=== PATIENT | female | born 1945 | race Caucasian/White ===

== ENCOUNTER 2018-09-19 01:48 | Inpatient (IN) | payer MEDICARE, OTHER ==
--- NOTE | 2018-09-19 02:50 | PDOC ---
History of Present Illness - General Chief Complaint: Pain, Acute Stated Complaint: ABD PAIN - History of Present Illness Initial Comments: Margot Dye is a 73yo woman with a PMH of HTN who presents with epigastric pain and NBNB vomiting that started around 9pm tonight. She reports that she felt well prior to that time, and she was able to eat normally today without any discomfort. The pain started suddenly this evening around 9pm, after dinner , along with NBNB vomiting. She describes the pain as sharp, located in the epigastrium, and non-radiating. Ms Dye had similar pain once in the past about a month ago, but it was less severe and self-resolved. She did not seek medical care at that time. Ms Dye states that she has been feeling well otherwise. She has been having normal bowel movement, including earlier today. She denies any history of GERD, recent abdominal pain, constipation, diarrhea, fever/chills, respiratory symptoms, change in diet, recent travel, or sick contacts. Her son ate dinner with her, and he currently has no symptoms. Past History - Past Medical History Allergies/Adverse Reactions: Allergies Allergy/AdvReac Type Severity Reaction Status Date / Time No Known Allergies Allergy Verified 09/19/18 02:00 Home Medications: Ambulatory Orders Lisinopril 10 mg PO DAILY 09/19/18 - Suicide/Smoking/Psychosocial Hx Smoking History: Never smoked Have you smoked in the past 12 months: No Information on smoking cessation initiated: No Hx Alcohol Use: No Drug/Substance Use Hx: No Review of Systems - Review of Systems Comments:: General: No fevers, no chills, no weight or appetite change, no malaise HEENT: No changes in vision, no changes in hearing, no congestion, no sore throat CV: No chest pain, no palpitations, no LE edema Pulm: No SOB, no cough, no wheezing GI: See HPI, no change in bowel habits, no melena : No frequency, no urgency, no dysuria Musc: No back pain, no joint swelling, no recent injury Skin: No rash, no lesions, no erythema Endo: No excessive thirst, no heat/cold intolerance Heme: No unusual bruising or bleeding, no swollen glands Neuro: No syncope, no numbness/tingling, no focal weakness Vasc: No claudication Psych: No recent change in mood, no SI or HI *Physical Exam - Vital Signs Last Vital Signs Temp Pulse Resp BP Pulse Ox 98.6 F 74 18 152/84 98 09/19/18 01:55 09/19/18 01:55 09/19/18 01:55 09/19/18 01:55 09/19/18 01:55 - Physical Exam Comments: General: Uncomfortable but in no acute distress HEENT: PERRL, EOMI, MMM, voice normal, normal neck ROM, no LAD Cards: RRR, no murmur appreciated Pulm: Comfortable on room air, clear to auscultation bilaterally Abd: Soft, nondistended. Epigastric TTP. No rigidity or involuntary guarding. : No CVA tenderness Ext: Atraumatic. No LE edema. ROM intact. Strength 5/5 and equal bilaterally Vasc: Extremities WWP. Palpable radial and pedal pulses bilaterally Skin: Normal color, no rashes or lesions Neuro: A&Ox3, CN grossly intact, normal speech, motor/sensory grossly intact and symmetric Psych: Mood appropriate to situation Moderate Sedation - Procedure Monitoring Vital Signs: Procedure Monitoring Vital Signs Temperature 98.6 F 09/19/18 01:55 Pulse Rate 74 09/19/18 01:55 Respiratory Rate 18 09/19/18 01:55 Blood Pressure 152/84 09/19/18 01:55 O2 Sat by Pulse Oximetry (%) 98 09/19/18 01:55 ED Treatment Course - LABORATORY CBC & Chemistry Diagram: 09/19/18 02:59 09/19/18 02:59 Medical Decision Making - Medical Decision Making 09/19/18 02:50 Margot Dye is a 73yo woman with a PMH of HTN who presents with acute onset of non-radiating epigastric pain and multiple episodes of NBNB vomiting starting at 9pm last night. She denies any associated symptoms including chest pain, SOB, diaphoresis, or lightheadedness. - DDx includes gastritis, cholecystitis, pancreatitis, or ACS. Do not suspect bowel obstruction as pt is having normal BM, most recently earlier today. - CBC, CMP, mag, phos, lipase, trop, EKG, CXR - Famotidine, maalox, reglan, IVF for symptoms 09/19/18 05:08 - Labs reviewed. Leukocytosis to 23, lipase 80059, amylase 1300, AST 263, ALT 186, alk phos 132. Elevated BUN/Cr, likely Colleen - Will admit to hospitalist service for pancreatitis - Additional 1L fluids ordered - Abd US ordered 09/19/18 06:18 - LR@125 ordered for continued hydration; requested by medicine team - IV acetaminophen for returning pain - Signed pt out to Dr Saldaña, who has since evaluated Ms Dye. She will be admitted to the medicine service for continued management. Discussed with Dr Heath. Rosanna Barbosa PGY1 *DC/Admit/Observation/Transfer Diagnosis at time of Disposition: Pancreatitis, COLLEEN (acute kidney injury) - Discharge Dispostion Decision to Admit order: Yes - Referrals - Patient Instructions - Post Discharge Activity
[2018-09-19] MEDS ORDERED: SODIUM CHLORIDE 0.9% 500 ML INFUS.BAG IV ONE ×2 (02:53→05:04)
[2018-09-19] MEDS ORDERED: FAMOTIDINE 20 MG/50 ML IVPB 20 MG/50 ML MG IVPB ONE ×2 (02:53→03:05)
[2018-09-19] MEDS ORDERED: METOCLOPRAMIDE HCL INJECTION 10 MG/2 ML VIAL IVPUSH ONE (02:53)
[2018-09-19] MEDS ORDERED: MAG HYDROX/AL HYDROX/SIMETH 30 ML UNIT-DOSE CUP PO ONE (02:53)
[2018-09-19] MEDS ORDERED: MAG HYDROX/AL HYDROX/SIMETH 30 ML UNIT-DOSE CUP ONE (03:05)
[2018-09-19] MEDS ORDERED: METOCLOPRAMIDE HCL INJECTION 10 MG/2 ML VIAL ONE (03:05)
[2018-09-19 03:09] LABS: BASO % 0.2 % (0-2.0); EOS % 0.2 % (0-4.5); HEMATOCRIT 46.9 % (32.4-45.2); HEMOGLOBIN 15.9 GM/dL (10.7-15.3); LYMPH % 6.8 % (8-40); MCH 30.8 pg (25.7-33.7); MCHC 33.9 g/dl (32.0-36.0); MEAN CELL VOLUME 90.7 fl (80-96); MEAN PLT VOLUME 8.7 fl (7.5-11.1); NEUT % 87.8 % (42.8-82.8); PLATELET COUNT 339 K/MM3 (134-434); RBC 5.17 M/mm3 (3.60-5.2); RDW 14.4 % (11.6-15.6); WHITE BLOOD COUNT 22.9 K/mm3 (4.0-10.0)
--- NOTE | 2018-09-19 03:16 | PDOC ---
Attending Attestation - Resident Resident Name: Rosanna Barbosa - ED Attending Attestation I have performed the following: I have examined & evaluated the patient, The case was reviewed & discussed with the resident, I agree w/resident's findings & plan, Exceptions are as noted - HPI HPI: 09/19/18 05:05 73F pmh HTN here with epigastric abd px a/w nbnb n/v starting this evening. Pt is passing gas and had a recent bm - Physicial Exam PE: 09/19/18 05:06 agree with exam as documented by resident - Medical Decision Making 09/19/18 05:06 acute gastritis?, megha, pancreatitis f/u labs re-eval after rx Pt states that px is much improved after GI cocktail Labs consistent with pancreatitis, analgesia, ivf hydration admit
[2018-09-19 04:58] LABS: ALBUMIN 4.4 g/dl (3.4-5.0); ALK PHOS 132 U/L (45-117); AMYLASE > 1300 U/L (25-115); ANION GAP 8 MMOL/L (8-16); BILIRUBIN,TOTAL 0.4 mg/dL (0.2-1); BLOOD UREA NITROGEN 26 mg/dL (7-18); CHLORIDE 103 mmol/L (98-107); CO2 30 mmol/L (21-32); CREATININE 1.4 mg/dL (0.55-1.3); GLUCOSE,RANDOM 191 mg/dL (74-106); LIPASE > 30000 U/L (73-393); MAGNESIUM 2.4 mg/dL (1.8-2.4); POTASSIUM 3.5 mmol/L (3.5-5.1); SGOT/AST 263 U/L (15-37); SGPT/ALT 186 U/L (13-61); SODIUM 142 mmol/L (136-145); TOT PROT 8.6 g/dl (6.4-8.2)
[2018-09-19] MEDS ORDERED: ACETAMINOPHEN 1000 MG/100 ML VIAL (NON FORMULARY) IVPB ONE (05:28)
[2018-09-19] MEDS ORDERED: LACTATED RINGERS SOLUTION 1,000 ML/1,000 ML INFUS.BAG IV SCH (05:30)
--- NOTE | 2018-09-19 05:43 | PN ---
Teaching Attending Note Name of Resident: Jamel Saldaña ATTENDING PHYSICIAN STATEMENT I saw and evaluated the patient. I reviewed the resident's note and discussed the case with the resident. I agree with the resident's findings and plan as documented. SUBJECTIVE: Patient is a 73 year old woman with a PMH of HTN who presents with epigastric pain and vomiting that started around 9pm tonight. She reports that she felt well prior to that time, and she was able to eat normally today without any discomfort. The pain started suddenly this evening around 9pm, after dinner, along with vomiting. She describes the pain as sharp, located in the epigastrium , and non-radiating. She had similar pain about a month ago, but it was less severe and self-resolved. She did not seek medical care at that time. She denies any history of GERD, recent abdominal pain, constipation, diarrhea, fever /chills, respiratory symptoms, change in diet, recent travel, or sick contacts. OBJECTIVE: Alert Vital Signs Period Temp Pulse Resp BP Sys/Contreras Pulse Ox Last 24 Hr 98.6 F 74 18 152/84 98 HEENT: No Jaundice, eye redness or discharge, PERRLA, EOMI. Normocephalic, atraumatic. External ears are normal and hearing is grossly intact. No nasal discharge. Neck: Supple, nontender. No palpable adenopathy or thyromegaly. No JVD Chest: Good effort. Clear to auscultation and percussion. Heart: Regular. No S3, rub or murmur Abdomen: Not distended, soft, tender epigastrium and no HSM. No rebound or guarding. Normoactive bowel sounds. Ext: Peripheral pulses intact. No leg edema. Skin: Warm and dry. No petechiae, rash or ecchymosis. Neuro: Alert. Oriented x3. CN 2-12 grossly intact. Sensation grossly intact in all four extremities and DTR are symmetric. Current Medications Generic Name Dose Route Start Last Admin Trade Name Freq PRN Reason Stop Dose Admin Lactated Ringer's 1,000 ml in 1,000 mls @ 125 mls/hr 09/19/18 05:30 Lactated Ringers Solution IV ASDIR [facility] Home Medications Medication Instructions Recorded Unobtainable 09/19/18 Abnormal Lab Results 09/19/18 09/19/18 02:59 02:59 WBC 22.9 H Hgb 15.9 H Hct 46.9 H Absolute Neuts (auto) 20.1 H Neutrophils % 87.8 H Lymphocytes % 6.8 L BUN 26 H Creatinine 1.4 H Random Glucose 191 H AST 263 H ALT 186 H Alkaline Phosphatase 132 H Total Protein 8.6 H Total Amylase > 1300 H Lipase > 84437 H ASSESSMENT AND PLAN: 1. Severe Pancreatitis - Etiology unclear, but gallstone pancreatitis will be excluded. Will get CT abdomen to assess for gallstones/pancreatic abscess. Continue IV ringers lactate at 125 ml/hour, pain control and feed as soon as she can tolerate oral feeds. Get fasting lipid profile, trend LFTs and monitor electrolytes (Ca,Mg,K,P). Check HbA1c once stable. 2. MODESTA - Likely induced by pancreatitis via various mechanisms such as hypovolemia, hypoxia, impairment of renal microcirculation, decrease in renal perfusion pressure, etc. Will continue aggressive hydration with Ringers lactate. Avoid nephrotoxic agents such as NSAIDS, aminoglycosides, contrast dyes and certain Alternative medicine products. 3. Hypertension - Once appropriate, will restart outpatient antihypertensive drugs and revise regimen to ensure smooth [id number] good BP control. Nonpharmacologic measures to control hypertension like weight loss, salt restriction and exercise discussed. 4. DVT prophylaxis - Lovenox 40 mg SQ q 24 hours. 5. Advance directives - Full code
[2018-09-19] MEDS ORDERED: ACETAMINOPHEN INJECTION 100 ML IVPB ONE (05:44)
[2018-09-19] MEDS ORDERED: ONDANSETRON 4 MG/2 ML VIAL IVPB PRN (05:59)
[2018-09-19] MEDS ORDERED: HEPARIN NA (PORCINE) 5,000 UNITS/ML 1ML VIAL ONE (06:21)
[2018-09-19] MEDS: HEPARIN NA (PORCINE) 5,000 UNITS/ML 1ML VIAL SQ SCH ×3 (06:27→21:06)
[2018-09-19 07:01] LABS: ALBUMIN 3.8 g/dl (3.4-5.0); ALK PHOS 112 U/L (45-117); ANION GAP 7 MMOL/L (8-16); BILIRUBIN,TOTAL 0.4 mg/dL (0.2-1); BLOOD UREA NITROGEN 26 mg/dL (7-18); CALCIUM 8.8 mg/dL (8.5-10.1); CHLORIDE 106 mmol/L (98-107); CO2 29 mmol/L (21-32); CREATININE 1.3 mg/dL (0.55-1.3); GLUCOSE,RANDOM 150 mg/dL (74-106); MAGNESIUM 2.1 mg/dL (1.8-2.4); PHOSPHOROUS 2.8 mg/dL (2.5-4.9); POTASSIUM 4.5 mmol/L (3.5-5.1); SGOT/AST 178 U/L (15-37); SGPT/ALT 162 U/L (13-61); SODIUM 142 mmol/L (136-145); TOT PROT 7.6 g/dl (6.4-8.2)
[2018-09-19 07:34] LABS: CHOLESTEROL 205 mg/dL (50-200); HDL CHOLESTEROL 57 mg/dL (40-60); TRIGLYCERIDES 128 mg/dL (0-150)
[2018-09-19 07:52] LABS: HEMATOCRIT 46.5 % (32.4-45.2); HEMOGLOBIN 15.7 GM/dL (10.7-15.3); MCHC 33.9 g/dl (32.0-36.0); MEAN CELL VOLUME 91.5 fl (80-96); PLATELET COUNT 283 K/MM3 (134-434); RBC 5.08 M/mm3 (3.60-5.2); WHITE BLOOD COUNT 20.4 K/mm3 (4.0-10.0)
[2018-09-19] MEDS ORDERED: MORPHINE SULFATE 2 MG/ML VIAL ONE (07:55)
[2018-09-19] MEDS: MORPHINE SULFATE 2 MG/ML VIAL IVPUSH PRN ×2 (08:13→13:17)
[2018-09-19] MEDS ORDERED: ONDANSETRON 4 MG/2 ML VIAL ONE (08:14)
[2018-09-19 08:52] LABS: PROTHROMBIN TIME (PATIENT) 11.8 SEC (9.7-13.0)
[2018-09-19 08:53] LABS: PLATELET ESTIMATE ADEQUATE
[2018-09-19 08:55] LABS: ACTIVATED PTT 26.8 SECONDS (25.2-36.5)
--- NOTE | 2018-09-19 09:02 | HP ---
CHIEF COMPLAINT: abdominal pain PCP: none HISTORY OF PRESENT ILLNESS: The patient is [place] speaking. the history was collected with the assistance of the patient's son at bedside. The patient is a 73-year-old female with a past medical history of hypertension who comes into the emergency department complaining of a one-day history of epigastric pain, nausea and NBNB vomiting. At approximately 9 PM this evening, the patient began to experience sharp epigastric pain with did not radiate. The patient say she has had a similar episode of this pain in the past but that episode was less severe and resolve spontaneously. The patient also endorses lumbar back pain in the midline. The patient denies fevers, chills, dysuria or diarrhea. The patient is currently being treated for HTN, but cannot recall the name of her medication. ER course was notable for: (1) WBC 22.9 (2) Lipase >30,000 Amylase >1300 (3) AST 263, ALT 186 (4) Reglan, 1L NS Recent Travel: none PAST MEDICAL HISTORY: see HPI PAST SURGICAL HISTORY: none Social History: Smoking: denies Alcohol: denies Drugs: denies Family History: non-contributory Allergies No Known Allergies Allergy (Verified 09/19/18 02:00) HOME MEDICATIONS: Home Medications Medication Instructions Recorded Lisinopril 10 mg PO DAILY 09/19/18 REVIEW OF SYSTEMS CONSTITUTIONAL: Absent: fever, chills, diaphoresis, generalized weakness, malaise, weight change HEENT: Absent: rhinorrhea, nasal congestion, throat pain, throat swelling, difficulty swallowing, mouth swelling, ear pain, eye pain, visual changes CARDIOVASCULAR: Absent: chest pain, syncope, palpitations, irregular heart rate, lightheadedness , peripheral edema RESPIRATORY: Absent: cough, shortness of breath, dyspnea with exertion, orthopnea, wheezing, stridor, hemoptysis GASTROINTESTINAL: Absent: diarrhea, constipation, melena, hematochezia GENITOURINARY: Absent: dysuria, frequency, urgency, hesitancy, hematuria, flank pain, genital pain MUSCULOSKELETAL: Absent: myalgia, arthralgia, joint swelling, back pain, neck pain SKIN: Absent: rash, itching, pallor HEMATOLOGIC/IMMUNOLOGIC: Absent: easy bleeding, easy bruising, lymphadenopathy, frequent infections ENDOCRINE: Absent: unexplained weight gain, unexplained weight loss, heat intolerance, cold intolerance NEUROLOGIC: Absent: headache, focal weakness or paresthesias, dizziness, unsteady gait, seizure, mental status changes, bladder or bowel incontinence PSYCHIATRIC: Absent: anxiety, depression, suicidal or homicidal ideation, hallucinations. PHYSICAL EXAMINATION Vital Signs - 24 hr 09/19/18 09/19/18 09/19/18 01:55 05:56 08:05 Temperature 98.6 F 98.5 F 98.6 F Pulse Rate 74 Pulse Rate [ 78 99 H Left Apical] Respiratory 18 19 20 Rate Blood Pressure 152/84 Blood Pressure 142/88 149/89 [Right Arm] O2 Sat by Pulse 98 100 99 Oximetry (%) GENERAL: Awake, alert, and fully oriented, in no acute distress. HEAD: Normal with no signs of trauma. EYES: Pupils equal, round and reactive to light, extraocular movements intact, sclera anicteric, conjunctiva clear. No lid lag. LUNGS: Breath sounds equal, clear to auscultation bilaterally. No wheezes, and no crackles. No accessory muscle use. HEART: Regular rate and rhythm, normal S1 and S2 without murmur, rub or gallop. ABDOMEN: Soft, tenderness to palpation in the RUQ as well as in the epigastrium and lower quadrants. normoactive bowel sounds, no guarding, no rebound, no masses. No hepatomegaly or splenomegaly. No CVA tenderness. Patient describes pain in the midline at the level of L4, but the pain is not reproducible. LOWER EXTREMITIES: 2+ pulses, warm, well-perfused. No calf tenderness. No peripheral edema. NEUROLOGICAL: Cranial nerves II-X intact. Normal speech. SKIN: Warm, dry, normal turgor, no rashes or lesions noted, normal capillary refill. Laboratory Results - last 24 hr 09/19/18 09/19/18 09/19/18 02:59 02:59 06:20 WBC 22.9 H 20.4 H RBC 5.17 5.08 Hgb 15.9 H 15.7 H Hct 46.9 H 46.5 H MCV 90.7 91.5 MCH 30.8 31.0 MCHC 33.9 33.9 RDW 14.4 14.0 Plt Count 339 283 MPV 8.7 9.0 Absolute Neuts (auto) 20.1 H Total Counted 100 Neutrophils % 87.8 H Neutrophils % (Manual) 81.0 Band Neutrophils % 5.0 Lymphocytes % 6.8 L Lymphocytes % (Manual) 7.0 L Monocytes % 5.0 Monocytes % (Manual) 7 Eosinophils % 0.2 Basophils % 0.2 Nucleated RBC % 0 Platelet Estimate Adequate Platelet Comment No clumping noted PT with INR INR PTT (Actin FS) Sodium 142 Potassium 3.5 Chloride 103 Carbon Dioxide 30 Anion Gap 8 BUN 26 H Creatinine 1.4 H Creat Clearance w eGFR 36.96 Random Glucose 191 H Calcium 10.0 Phosphorus 4.0 Magnesium 2.4 Total Bilirubin 0.4 AST 263 H ALT 186 H Alkaline Phosphatase 132 H Creatine Kinase 86 Troponin I < 0.02 Total Protein 8.6 H Albumin 4.4 Triglycerides Cholesterol Total LDL Cholesterol HDL Cholesterol Total Amylase > 1300 H Lipase > 25838 H 09/19/18 09/19/18 06:20 06:20 WBC RBC Hgb Hct MCV MCH MCHC RDW Plt Count MPV Absolute Neuts (auto) Total Counted Neutrophils % Neutrophils % (Manual) Band Neutrophils % Lymphocytes % Lymphocytes % (Manual) Monocytes % Monocytes % (Manual) Eosinophils % Basophils % Nucleated RBC % Platelet Estimate Platelet Comment PT with INR 11.80 INR 1.00 PTT (Actin FS) 26.8 Sodium 142 Potassium 4.5 Chloride 106 Carbon Dioxide 29 Anion Gap 7 L BUN 26 H Creatinine 1.3 Creat Clearance w eGFR 40.26 Random Glucose 150 H Calcium 8.8 Phosphorus 2.8 Magnesium 2.1 Total Bilirubin 0.4 AST 178 H ALT 162 H Alkaline Phosphatase 112 Creatine Kinase Troponin I Total Protein 7.6 Albumin 3.8 Triglycerides 128 Cholesterol 205 H Total LDL Cholesterol 126 H HDL Cholesterol 57 Total Amylase Lipase ASSESSMENT/PLAN: The patient is a 73-year-old female with a past medical history of hypertension who comes into the emergency department complaining of a one-day history of epigastric pain and NBNB vomiting. #Epigastric pain and NBNB vomiting likely secondary to acute pancreatitis r/o intra-abdominal abscess or pancreatic mass -lipase > 30,000 -leukocytosis to 22.9 -will obtain CT abdomen and pelvis to rule out mass or abscess. -lipid panel in AM -NPO -IVF w/ LR @ 125 -monitor closely for signs of fluid overload -Zofran PRN nausea -2 mg morphine Q6H PRN pain #FEN -LR @125 -lytes WNL -NPO #Prophy -Heparin SQ 5k units Q8H #Dispo -admit med surg Visit type - Emergency Visit Emergency Visit: Yes ED Registration Date: 09/19/18 Care time: The patient presented to the Emergency Department on the above date and was hospitalized for further evaluation of their emergent condition. - New Patient This patient is new to me today: Yes Date on this admission: 09/19/18 - Critical Care Critical Care patient: No
[2018-09-19] MEDS ORDERED: PANTOPRAZOLE SODIUM 40 MG VIAL IVPUSH SCH (10:00)
[2018-09-19] MEDS: LACTATED RINGERS SOLUTION 1,000 ML/1,000 ML INFUS.BAG IV SCH ×3 (10:09→20:56)
[2018-09-19] MEDS ORDERED: PANTOPRAZOLE SODIUM 40 MG VIAL ONE (10:10)
[2018-09-19] MEDS ORDERED: METOPROLOL TARTRATE 50 MG TABLET (FP) ONE (10:18)
[2018-09-19] MEDS ORDERED: ASPIRIN 81 MG CHEWABLE TABLETS ONE (10:18)
--- NOTE | 2018-09-19 11:39 | CON.GI ---
Consult Consult Specialty:: GI Referred by:: Hospitalist Service Reason for Consultation:: Abdominal pain - History of Present Illness Chief Complaint: Upper abdominal pain History of Present Illness: [id number] present at bedside and aiding in intepretation as patient primarily Tu[place]uan speaking. Ms. Dye is a 73 year old woman who presented to the [facility] ER early this morning for evaluation of abdominal pain. The pain began around 9am last night. It was sharp and progressively more in tense in nature associated with N/V. Prior to this, she had eaten rice and beans at around 6pm. She had a similar episode the day after this past thanksgiving, however it resolved in a couple of hours after the onset. Given the persistent nauture of this episode, she came to the ER. Triage Vitakls revealed T: 98.6 P: 74 BP: 152/84. WBC was 22K, Amylase > 13k, Lipase > 30k with AST: 178 ALT: 162 ALP: 132 and normal bilirubin. A non-contrast CT scan of the abdoemn was performed that revealed changes consistent with acute pancreattiis. Exam was limited due to lack of IV contrast. She does not drink alcohol and triglycerides were normal. There is no family history of pancreatitis. There has been no recent change in medication regimen. It appears as though 2 L of NS were ordered and ? given in the ED. She currently complains of continued abdominal pain. There has been no further vomiting. 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 (year[place] 2008 History of Recent Travel: No Home Medications - Allergies Allergies/Adverse Reactions: Allergies Allergy/AdvReac Type Severity Reaction Status Date / Time No Known Allergies Allergy Verified 09/19/18 02:00 - Home Medications Home Medications: Ambulatory Orders Lisinopril 10 mg PO DAILY 02/01/19 Family Disease History - Family Disease History Family Disease History: Other: Father (: "old age"), Mother (: "old age "), Brother ("A few"), Sister ("a few"), Son (4, healthy ), Daughter (2, healthy ) Other Family History: No family history of colorectal cancer, pancreatitis, pancreatic cancer or other GI malignancies Review of Systems - Review of Systems Constitutional: denies: Chills Cardiovascular: denies: Chest Pain Respiratory: denies: SOB Physical Exam-GI Vital Signs: Vital Signs Temperature 98.6 F Oral 09/19/18 1130 Pulse Rate 101 09/19/18 1130 Respiratory Rate 20 09/19/18 1130 Blood Pressure 159/77 09/19/18 1130 O2 Sat by Pulse Oximetry (%) 97 (RA) 09/19/18 1130 Constitutional: Yes: Calm Eyes: No: Sclera Icterus Cardiovascular: Yes: Tachycardia (regular rhythm). No: Murmur Respiratory: Yes: CTA Bilaterally Gastrointestinal Inspection: No: Distention, Scars ...Auscultate: Yes: Normoactive Bowel Sounds ...Palpate: Yes: Soft, Tenderness (Diffusely tender, particularly in mid abdomen , with vomuntary guarding.) ...Percussion: No: Tympanitic Edema: No (No LE edema) Neurological: Yes: Alert Labs: Hepatic Panel Total Bilirubin 0.4 mg/dL (0.2-1) 09/19/18 06:20 AST 178 U/L (15-37) H 09/19/18 06:20 ALT 162 U/L (13-61) H 09/19/18 06:20 Alkaline Phosphatase 112 U/L (45-117) 09/19/18 06:20 Albumin 3.8 g/dl (3.4-5.0) 09/19/18 06:20 09/19/18 06:20 09/19/18 06:20 INR, PTT INR 1.00 (0.83-1.09) 09/19/18 06:20 BISAP SCORE on Admission: 2 Imaging - Results Cat Scan: Report Reviewed, Image Reviewed Problem List - Problems (1) Acute pancreatitis Assessment/Plan: Acute pancreatitis: Suspect secondary to passed gallstone given rise and subsequent improvement in ALP / transaminases No dedicated biliary tract imaging as of yet. Non-contrast CT scan marginally helpful in acute pancreatitis as it cannot help differentiate interstitial vs. necrotic. Lisinopril could thoretucally cause a pancreatitis, however, this would be a lower precipiating factor in the differential BISAP score is currently 2 Advise: NPO except meds [place] analgesia as needed Surgical consultation Strict I's and O's Abdominal US pending MRCP ordered Aggressive IV hydration, particualarly given noted hemoconcentration on admission labs: I increased the fluids to lactated ringers at 200cc/hr. If the normal saline boluses were not given in the ED, can bolus a liter of lactated ringers and continue at 250cc/hr If persistent vomiting, place NG tube Would admit patient to ICU given the need for significant fluid requirements and close monitoring of vitals / I's and O's. If improvement , can be downgraded. Code(s): K85.90 - ACUTE PANCREATITIS WITHOUT NECROSIS OR INFECTION, UNSP Qualifiers: Pancreatitis type: unspecified pancreatitis type
[2018-09-19] MEDS ORDERED: HYDROmorphone HCl 2 MG/ML VIAL IVPUSH ONE (11:44)
--- NOTE | 2018-09-19 11:50 | EKG ---
Test Reason : Blood Pressure : / mmHG Vent. Rate : 075 BPM Atrial Rate : 075 BPM P-R Int : 156 ms QRS Dur : 080 ms QT Int : 408 ms P-R-T Axes : 066 036 032 degrees QTc Int : 455 ms SINUS RHYTHM WITH MARKED SINUS ARRHYTHMIA POSSIBLE LEFT ATRIAL ENLARGEMENT NONSPECIFIC T WAVE ABNORMALITY ABNORMAL ECG NO PREVIOUS ECGS AVAILABLE Confirmed by LOWELL GAUTAM, RAUL ([id number] on 09/19/2018 11:49:55 AM Referred By: Confirmed By:RAUL ETIENNE MD
--- NOTE | 2018-09-19 12:10 | PN ---
Physical Exam: SUBJECTIVE: Patient seen and examined this AM. She is complaining of epigastric pain and still having some nonbloody vomiting this morning. OBJECTIVE: Vital Signs Period Temp Pulse Resp BP Sys/Contreras Pulse Ox Last 24 Hr 98.1 F-98.6 F 74-101 18-20 142-162/75-89 96-100 GENERAL: A&O, mild distress HEAD: Normocephalic, atraumatic. EYES: no scleral icterus EARS, NOSE, THROAT: oropharynx clear without exudates. Moist mucous membranes. NECK: supple without lymphadenopathy LUNGS: CTA b/l, no crackles or wheezes HEART: Regular rate and rhythm, normal S1 and S2 without murmur ABDOMEN: Soft, tender to palpation in epigastric region, normoactive bowel sounds EXTREMITIES: 2+ pulses, warm, well-perfused. No peripheral edema. Laboratory Results - last 24 hr 09/19/18 09/19/18 09/19/18 02:59 02:59 06:20 WBC 22.9 H 20.4 H RBC 5.17 5.08 Hgb 15.9 H 15.7 H Hct 46.9 H 46.5 H MCV 90.7 91.5 MCH 30.8 31.0 MCHC 33.9 33.9 RDW 14.4 14.0 Plt Count 339 283 MPV 8.7 9.0 Absolute Neuts (auto) 20.1 H Total Counted 100 Neutrophils % 87.8 H Neutrophils % (Manual) 81.0 Band Neutrophils % 5.0 Lymphocytes % 6.8 L Lymphocytes % (Manual) 7.0 L Monocytes % 5.0 Monocytes % (Manual) 7 Eosinophils % 0.2 Basophils % 0.2 Nucleated RBC % 0 Platelet Estimate Adequate Platelet Comment No clumping noted PT with INR INR PTT (Actin FS) Sodium 142 Potassium 3.5 Chloride 103 Carbon Dioxide 30 Anion Gap 8 BUN 26 H Creatinine 1.4 H Creat Clearance w eGFR 36.96 Random Glucose 191 H Calcium 10.0 Phosphorus 4.0 Magnesium 2.4 Total Bilirubin 0.4 AST 263 H ALT 186 H Alkaline Phosphatase 132 H Creatine Kinase 86 Troponin I < 0.02 Total Protein 8.6 H Albumin 4.4 Triglycerides Cholesterol Total LDL Cholesterol HDL Cholesterol Total Amylase > 1300 H Lipase > 89429 H 09/19/18 09/19/18 06:20 06:20 WBC RBC Hgb Hct MCV MCH MCHC RDW Plt Count MPV Absolute Neuts (auto) Total Counted Neutrophils % Neutrophils % (Manual) Band Neutrophils % Lymphocytes % Lymphocytes % (Manual) Monocytes % Monocytes % (Manual) Eosinophils % Basophils % Nucleated RBC % Platelet Estimate Platelet Comment PT with INR 11.80 INR 1.00 PTT (Actin FS) 26.8 Sodium 142 Potassium 4.5 Chloride 106 Carbon Dioxide 29 Anion Gap 7 L BUN 26 H Creatinine 1.3 Creat Clearance w eGFR 40.26 Random Glucose 150 H Calcium 8.8 Phosphorus 2.8 Magnesium 2.1 Total Bilirubin 0.4 AST 178 H ALT 162 H Alkaline Phosphatase 112 Creatine Kinase Troponin I Total Protein 7.6 Albumin 3.8 Triglycerides 128 Cholesterol 205 H Total LDL Cholesterol 126 H HDL Cholesterol 57 Total Amylase Lipase Active Medications Generic Name Dose Route Start Last Admin Trade Name Freq PRN Reason Stop Dose Admin Heparin Sodium (Porcine) 5,000 unit 09/19/18 06:15 09/19/18 06:27 Heparin - SQ 5,000 unit TID EARNESTINE Administration Lactated Ringer's 1,000 ml in 1,000 mls @ 200 mls/hr 09/19/18 09:45 09/19/18 10:09 Lactated Ringers Solution IV 200 mls/hr ASDIR EARNESTINE Administration Morphine Sulfate 2 mg 09/19/18 05:59 09/19/18 08:13 Morphine Sulfate IVPUSH 2 mg Q6H PRN Administration PAIN LEVEL 6-10 Ondansetron HCl 8 mg 09/19/18 05:59 09/19/18 08:16 Zofran Injection IVPB 8 mg Q6H PRN Administration NAUSEA AND/OR VOMITING Pantoprazole Sodium 40 mg 09/19/18 10:00 09/19/18 10:10 Protonix Iv IVPUSH 40 mg DAILY EARNESTINE Administration ASSESSMENT/PLAN: 73-year-old female with a past medical history of hypertension who comes into the emergency department complaining of a one-day history of epigastric pain, nausea and NBNB vomiting. Acute Pancreatitis, secondary to unknown cause -Lipase/Amylase too elevated to report -Significant Epigastric pain -CT abdomen with pancreatic inflammation, official read pending -GI consult appreciated -LR @ 200 cc/hr -Pain control with Dilauded 0.5 mg IV once, will reevaluate -NPO for now, advance as tolerating -Monitor Intake and output with high volume of fluid resuscitation HTN -Continue Lisinopril 10 mg DVT Prophylaxis -Heparin 5000 units SQ TID FEN -Fluids: LR @ 200 cc/hr -Electrolytes: No electrolyte abnormalities, BMP in AM -Nutrition: NPO Disposition Med/Surg, for evaluation for ICU monitoring as per GI Visit type - Emergency Visit Emergency Visit: Yes ED Registration Date: 09/19/18 Care time: The patient presented to the Emergency Department on the above date and was hospitalized for further evaluation of their emergent condition. - New Patient This patient is new to me today: Yes Date on this admission: 09/19/18 - Critical Care Critical Care patient: No
--- NOTE | 2018-09-19 13:49 | CONSULT ---
Consult - History of Present Illness History of Present Illness: 73yo F with PMH of HTN presenting with 10/10 epigastric pain and vomiting since last night. Patient states that she has had similar pain like this in the days following last thanksgiving, but now the pain is worse. The pain is present at baseline but has periods of exacerbation. Certain movements make it worse and nothing makes it better. She has not eaten anything since last night. Patient reports 20-30 episodes of nonbloody bilious vomiting. Last bowel movement was yesterday and was a normal formed brown stool without blood. Denies surgical history. Patient reports shortness of breath which she attributes to her abdominal pain. No fevers, chills, or chest pain. PMH: HTN, "thyroid and kidney problems" PSH: Denies FH: No family history of abdominal pathology Social: quit smoking 30 years ago/ denies ETOH use/ no other substances PCP: A physician in [facility] - Past Medical History Cardio/Vascular: Yes: HTN Renal/: Yes: Renal Inusuff Endocrine: Yes: Diabetes Mellitus - Past Surgical History Additional Surgical History: Denies - Alcohol/Substance Use Hx Alcohol Use: No History of Substance Use: reports: None - Smoking History Smoking history: Never smoked Have you smoked in the past 12 months: No - Social History Usual Living Arrangement: With Child ADL: Independent 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 [facility] History of Recent Travel: No Home Medications - Allergies Allergies/Adverse Reactions: Allergies Allergy/AdvReac Type Severity Reaction Status Date / Time No Known Allergies Allergy Verified 09/19/18 02:00 - Home Medications Home Medications: Ambulatory Orders Lisinopril 10 mg PO DAILY 09/19/18 Family Disease History - Family Disease History Family Disease History: Other: Father (: "old age"), Mother (: "old age "), Brother ("A few"), Sister ("a few"), Son (4, healthy ), Daughter (2, healthy ) Other Family History: No family history of colorectal cancer, pancreatitis, pancreatic cancer or other GI malignancies Review of Systems Findings/Remarks: Constitutional: no fever, no chills HEENT: no throat pain, no dysphagia Cardiovascular: no chest pain, no palpitations Respiratory: no cough, +shortness of breath Gastrointestinal: +abdominal pain, +nausea, +vomiting, no diarrhea Genitourinary: no dysuria, no frequency Musculoskeletal: no myalgia, +knee pain (present at baseline) Skin: no rash, no itching Neurologic: no headache, no dizziness Physical Exam Vital Signs: Vital Signs Temperature 98.1 F 09/19/18 11:32 Pulse Rate 101 H 09/19/18 11:32 Respiratory Rate 18 09/19/18 11:32 Blood Pressure 162/75 09/19/18 11:32 O2 Sat by Pulse Oximetry (%) 96 09/19/18 11:32 General: Awake, alert, and fully oriented Head: No signs of trauma Eyes: EOMI, sclera anicteric ENT: Dry mucus membranes Neck: Normal ROM, supple Lungs: Some rales present in the bases Cardio: Regular rhythm, S1 and S2 present Abdomen: Tender to palpation most focal to the epigastrium. Soft, nondistended. +guarding, no rebound, no masses Extremities: Normal range of motion, Distal pulses present SKIN: Warm, Dry, normal turgor Neurologic: Cranial nerves II through XII grossly intact. Normal speech Labs: CBC, BMP 09/19/18 06:20 09/19/18 06:20 Imaging - Results Chest X-ray: Report Reviewed ( No evidence of pneumonia, CHF, pleural effusion, or pneumothorax) Cat Scan: Report Reviewed (Findings consistent with acute pancreatitis without abscess or pseudocyst formation. Clinical correlation and follow-up recommended. Please see above discussion.) Ultrasound: Report Reviewed (Limited examination, as described above. Gallstones without sonographic evidence of acute cholecystitis. Fatty liver versus hepatocellular disease. Please correlate with liver enzymes.) Assessment/Plan 73yo F with PMH of HTN presenting with 10/10 epigastric pain and vomiting since last night. WBC=22.9, Lipase>30K, ALT/YDA=927/263. Patient given fluid hydration , currently running at 200cc/hr. Admitted for acute pancreatitis, unknown etiology-- likely gallstone. PLAN CV Chronic Hypertension -hold home lisinopril PULM Shortness of breath, likely due to splinting from abdominal pain CXR without acute pathology O2 sat is 96 on room air GI Acute pancreatitis, unknown etiology-- likely gallstone -GI consulted -Surgery consulted -Aggressive fluid hydration: LR 200 cc/hr -Will likely require cholecystectomy before discharge -MRCP ordered -2mg morphine q6h PRN for pain ID WBC=22.9 qSOFA=0 Follow CBC and trend WBC ENDOCRINE Chronic "thyroid problem" -not currently taking any thyroid medicine FEN -Follow electrolytes, replete as needed -LR 200 cc/hr -NPO Recommend Jin for strict I/O's to guide fluid resuscitation PPX VTE: heparin sq #Disposition: Patient admitted to med/surg floor. ICU-level care not needed at this time as patient is currently hemodynamically stable.
--- NOTE | 2018-09-19 14:13 | PN ---
Teaching Attending Note Name of Resident: Lidya Gan ATTENDING PHYSICIAN STATEMENT I saw and evaluated the patient. I reviewed the resident's note and discussed the case with the resident. I agree with the resident's findings and plan as documented. SUBJECTIVE: 73 F, HTN. Admitted via the ER due to 10/10 epigastric pain and vomiting since last night. Had a similar pain around thanksgiving. Reports 20-30 episodes of nonbloody bilious vomiting. No bleeding noted. No travel history or sick contacts. Intake & Output 09/16/18 09/17/18 09/18/18 09/19/18 23:59 23:59 23:59 23:59 Weight 150 lb Last Vital Signs Temp Pulse Resp BP Pulse Ox 98.1 F 101 H 18 162/75 96 09/19/18 11:32 09/19/18 11:32 09/19/18 11:32 09/19/18 11:32 09/19/18 11:32 Active Medications Heparin Sodium (Porcine) (Heparin -) 5,000 unit SQ TID [facility] Last Admin: 09/19/18 13:19 Dose: 5,000 unit Lactated Ringer's (Lactated Ringers Solution) 1,000 ml in 1,000 mls @ 200 mls/ hr IV ASDIR [facility] Last Admin: 09/19/18 10:09 Dose: 200 mls/hr Morphine Sulfate (Morphine Sulfate) 2 mg IVPUSH Q6H PRN PRN Reason: PAIN LEVEL 6-10 Last Admin: 09/19/18 13:17 Dose: 2 mg General: Awake, alert, and fully oriented, in no acute distress Head: No signs of trauma Eyes: EOMI, sclera anicteric ENT: Dry mucus membranes Neck: Normal ROM, supple Lungs: Lungs clear, Normal breath sounds Cardio: Regular rhythm, S1 and S2 present Abdomen: Tender to palpation in the epigastrium. Soft, nondistended. +guarding, no rebound, no masses Extremities: Normal range of motion, Distal pulses present SKIN: Warm, Dry, normal turgor Neurologic: Cranial nerves II through XII grossly intact. Normal speech Labs: Laboratory Results - last 24 hr 09/19/18 09/19/18 09/19/18 02:59 02:59 06:20 WBC 22.9 H 20.4 H RBC 5.17 5.08 Hgb 15.9 H 15.7 H Hct 46.9 H 46.5 H MCV 90.7 91.5 MCH 30.8 31.0 MCHC 33.9 33.9 RDW 14.4 14.0 Plt Count 339 283 MPV 8.7 9.0 Absolute Neuts (auto) 20.1 H Total Counted 100 Neutrophils % 87.8 H Neutrophils % (Manual) 81.0 Band Neutrophils % 5.0 Lymphocytes % 6.8 L Lymphocytes % (Manual) 7.0 L Monocytes % 5.0 Monocytes % (Manual) 7 Eosinophils % 0.2 Basophils % 0.2 Nucleated RBC % 0 Platelet Estimate Adequate Platelet Comment No clumping noted PT with INR INR PTT (Actin FS) Sodium 142 Potassium 3.5 Chloride 103 Carbon Dioxide 30 Anion Gap 8 BUN 26 H Creatinine 1.4 H Creat Clearance w eGFR 36.96 Random Glucose 191 H Calcium 10.0 Phosphorus 4.0 Magnesium 2.4 Total Bilirubin 0.4 AST 263 H ALT 186 H Alkaline Phosphatase 132 H Creatine Kinase 86 Troponin I < 0.02 Total Protein 8.6 H Albumin 4.4 Triglycerides Cholesterol Total LDL Cholesterol HDL Cholesterol Total Amylase > 1300 H Lipase > 60010 H 09/19/18 09/19/18 06:20 06:20 WBC RBC Hgb Hct MCV MCH MCHC RDW Plt Count MPV Absolute Neuts (auto) Total Counted Neutrophils % Neutrophils % (Manual) Band Neutrophils % Lymphocytes % Lymphocytes % (Manual) Monocytes % Monocytes % (Manual) Eosinophils % Basophils % Nucleated RBC % Platelet Estimate Platelet Comment PT with INR 11.80 INR 1.00 PTT (Actin FS) 26.8 Sodium 142 Potassium 4.5 Chloride 106 Carbon Dioxide 29 Anion Gap 7 L BUN 26 H Creatinine 1.3 Creat Clearance w eGFR 40.26 Random Glucose 150 H Calcium 8.8 Phosphorus 2.8 Magnesium 2.1 Total Bilirubin 0.4 AST 178 H ALT 162 H Alkaline Phosphatase 112 Creatine Kinase Troponin I Total Protein 7.6 Albumin 3.8 Triglycerides 128 Cholesterol 205 H Total LDL Cholesterol 126 H HDL Cholesterol 57 Total Amylase Lipase Assessment/Plan Suspect Gallstone Pancreatitis with possible passage of the stone Currently improved and hemodynamically stable with no indication of systemic morbidity LL atelectasis due to splinting Continued IVF resuscitation with LR No indication for ABX O2 as needed Surgical and GI evaluation For MRCP Incentive Spirometry VTE prophylaxis Please call for any change/worsening of clinical condition Dr Stubbs
--- NOTE | 2018-09-19 14:30 | CONSULT ---
- Consultation REQUESTING PROVIDER: CONSULT REQUEST: We have been asked to surgically evaluate this patient for abd pain/pancreatitis. PCP:Jordan Benitez MD HISTORY OF PRESENT ILLNESS: The history was taken today with the help of her family at bedside. Her family states that she developed acute pain yesterday and had non-bloody vomiting. She had a similar episode around which resolved after 2 days with limiting her diet. Her pain is mostly in the upper abdomen. Pt seen today with Dr. Arcos. PMHx:high blood pressure PSHx: tubal ligation Home Medications Medication Instructions Recorded Lisinopril 10 mg PO DAILY 09/19/18 Allergies Allergy/AdvReac Type Severity Reaction Status Date / Time No Known Allergies Allergy Verified 09/19/18 02:00 REVIEW OF SYSTEMS: CONSTITUTIONAL: Absent: fever, chills GASTROINTESTINAL: Absent: abdominal pain, abdominal distension, nausea, vomiting PHYSICAL EXAM: GENERAL: Awake, alert, and appears uncomfortable. EYES: sclera anicteric, conjunctiva clear. ABDOMEN: Soft, no rebound. RUQ/epigastric tenderness>RLQ. NEUROLOGICAL: Normal speech, gait not observed. PSYCH: Cooperative. Good eye contact. Vital Signs Temperature 98.1 F 09/19/18 11:32 Pulse Rate 101 H 09/19/18 11:32 Respiratory Rate 18 09/19/18 11:32 Blood Pressure 162/75 09/19/18 11:32 O2 Sat by Pulse Oximetry (%) 96 09/19/18 11:32 Lab Results WBC 20.4 K/mm3 (4.0-10.0) H 09/19/18 06:20 RBC 5.08 M/mm3 (3.60-5.2) 09/19/18 06:20 Hgb 15.7 GM/dL (10.7-15.3) H 09/19/18 06:20 Hct 46.5 % (32.4-45.2) H 09/19/18 06:20 MCV 91.5 fl (80-96) 09/19/18 06:20 MCHC 33.9 g/dl (32.0-36.0) 09/19/18 06:20 RDW 14.0 % (11.6-15.6) 09/19/18 06:20 Plt Count 283 K/MM3 (134-434) 09/19/18 06:20 Sodium 142 mmol/L (136-145) 09/19/18 06:20 Potassium 4.5 mmol/L (3.5-5.1) 09/19/18 06:20 Chloride 106 mmol/L (98-107) 09/19/18 06:20 Carbon Dioxide 29 mmol/L (21-32) 09/19/18 06:20 Anion Gap 7 MMOL/L (8-16) L 09/19/18 06:20 BUN 26 mg/dL (7-18) H 09/19/18 06:20 Creatinine 1.3 mg/dL (0.55-1.3) 09/19/18 06:20 Random Glucose 150 mg/dL (74-106) H 09/19/18 06:20 Calcium 8.8 mg/dL (8.5-10.1) 09/19/18 06:20 INR 1.00 (0.83-1.09) 09/19/18 06:20 Laboratory Tests 09/19/18 09/19/18 02:59 06:20 Total Bilirubin 0.4 AST 178 H ALT 162 H Alkaline Phosphatase 112 Total Amylase > 1300 H Lipase > 87992 H US: Gallstones with no intra/extra hepatic duct dilatation CT scan: (limited with no contrast given) slight prominence fo the pancrease with inflammatory stranding in the fat and free fluid within the pararenal space. Problem List - Problems (1) Pancreatitis Assessment/Plan: Pt with evidence of pancreatitis and GS disease. Recommend to continue npo/IV hydration-given 1 liter bolus in the ER and now IV fluids at 200ml/h Trend daily labs cbc/chem/lipase and amylase IV pain medicaiton and antinausea medications as needed IV GI ppx MRCP ordered Will follow the patient and recommend cholecystectomy after pancreatitis resolved Code(s): K85.90 - ACUTE PANCREATITIS WITHOUT NECROSIS OR INFECTION, UNSP Qualifiers: Chronicity: acute
--- NOTE | 2018-09-19 18:28 | PN ---
Teaching Attending Note Name of Resident: Christophe Dailey ATTENDING PHYSICIAN STATEMENT I saw and evaluated the patient. I reviewed the resident's note and discussed the case with the resident. I agree with the resident's findings and plan as documented. SUBJECTIVE: Ongoing abdominal pain. No fever/chills. No further nausea/vomiting/ diarrhea/melena/hematochezia. OBJECTIVE: Afebrile, Hemodynamically Stable. Last Vital Signs Temp Pulse Resp BP Pulse Ox 98.5 F 111 H 20 157/93 97 09/19/18 17:45 09/19/18 17:45 09/19/18 17:45 09/19/18 17:45 09/19/18 16:49 HEENT - Atraumatic, Normocephalic. Heart -S1, S2, soft SM. Lungs - few basal crackles. Abdomen - Epigastric and RUQ tenderness. No guarding/rebound. Bowel Sounds normal. Extremities - no calf swelling/tenderness. Laboratory Results - last 24 hr 09/19/18 09/19/18 09/19/18 02:59 02:59 06:20 WBC 22.9 H 20.4 H RBC 5.17 5.08 Hgb 15.9 H 15.7 H Hct 46.9 H 46.5 H MCV 90.7 91.5 MCH 30.8 31.0 MCHC 33.9 33.9 RDW 14.4 14.0 Plt Count 339 283 MPV 8.7 9.0 Absolute Neuts (auto) 20.1 H Total Counted 100 Neutrophils % 87.8 H Neutrophils % (Manual) 81.0 Band Neutrophils % 5.0 Lymphocytes % 6.8 L Lymphocytes % (Manual) 7.0 L Monocytes % 5.0 Monocytes % (Manual) 7 Eosinophils % 0.2 Basophils % 0.2 Nucleated RBC % 0 Platelet Estimate Adequate Platelet Comment No clumping noted PT with INR INR PTT (Actin FS) Sodium 142 Potassium 3.5 Chloride 103 Carbon Dioxide 30 Anion Gap 8 BUN 26 H Creatinine 1.4 H Creat Clearance w eGFR 36.96 Random Glucose 191 H Calcium 10.0 Phosphorus 4.0 Magnesium 2.4 Total Bilirubin 0.4 AST 263 H ALT 186 H Alkaline Phosphatase 132 H Creatine Kinase 86 Troponin I < 0.02 Total Protein 8.6 H Albumin 4.4 Triglycerides Cholesterol Total LDL Cholesterol HDL Cholesterol Total Amylase > 1300 H Lipase > 80576 H 09/19/18 09/19/18 06:20 06:20 WBC RBC Hgb Hct MCV MCH MCHC RDW Plt Count MPV Absolute Neuts (auto) Total Counted Neutrophils % Neutrophils % (Manual) Band Neutrophils % Lymphocytes % Lymphocytes % (Manual) Monocytes % Monocytes % (Manual) Eosinophils % Basophils % Nucleated RBC % Platelet Estimate Platelet Comment PT with INR 11.80 INR 1.00 PTT (Actin FS) 26.8 Sodium 142 Potassium 4.5 Chloride 106 Carbon Dioxide 29 Anion Gap 7 L BUN 26 H Creatinine 1.3 Creat Clearance w eGFR 40.26 Random Glucose 150 H Calcium 8.8 Phosphorus 2.8 Magnesium 2.1 Total Bilirubin 0.4 AST 178 H ALT 162 H Alkaline Phosphatase 112 Creatine Kinase Troponin I Total Protein 7.6 Albumin 3.8 Triglycerides 128 Cholesterol 205 H Total LDL Cholesterol 126 H HDL Cholesterol 57 Total Amylase Lipase Current Medications Generic Name Dose Route Start Last Admin Trade Name Freq PRN Reason Stop Dose Admin Heparin Sodium (Porcine) 5,000 unit 09/19/18 06:15 09/19/18 13:19 Heparin - SQ 5,000 unit TID EARNESTINE Administration Lactated Ringer's 1,000 ml in 1,000 mls @ 200 mls/hr 09/19/18 09:45 09/19/18 15:43 Lactated Ringers Solution IV 200 mls/hr ASDIR EARNESTINE Administration Morphine Sulfate 2 mg 09/19/18 05:59 09/19/18 13:17 Morphine Sulfate IVPUSH 2 mg Q6H PRN Administration PAIN LEVEL 6-10 Home Medications Medication Instructions Recorded Lisinopril 10 mg PO DAILY 09/19/18 ASSESSMENT AND PLAN: 73 year old female with HTN, presents with epigastric abdominal pain/nausea/ vomiting, started after dinner 09/18. 1. Severe Pancreatitis, likely sec to Gallstones. Leukocytosis. Afebrile. Lipase > 30,000 AST 263 ---> 178 ALT 186 ---> [address] - findings consistent with acute pancreatitis without abscess or pseudocyst. Abdominal US - Gallstones without sonographic evidence of acute cholecystitis, fatty liver. NPO, IV Hydration. Monitor electrolytes. Analgesia with Morphine Sulfate. GI and Surgery consults. MRCP requested. 2. HTN - normally on Lisinopril, will hold. DVT Px - Heparin SQ GI Px - Protonix IV
[2018-09-20] MEDS: MORPHINE SULFATE 2 MG/ML VIAL IVPUSH PRN ×2 (00:17→10:39)
[2018-09-20] MEDS: LACTATED RINGERS SOLUTION 1,000 ML/1,000 ML INFUS.BAG IV SCH ×6 (03:00→22:07)
[2018-09-20] MEDS ORDERED: HYDROmorphone HCl 2 MG/ML VIAL IVPUSH ONE (03:46)
[2018-09-20] MEDS: HEPARIN NA (PORCINE) 5,000 UNITS/ML 1ML VIAL SQ SCH ×3 (05:32→22:05)
[2018-09-20] MEDS ORDERED: ACETAMINOPHEN 325 MG TABLET (FP) PO ONE (05:52)
--- NOTE | 2018-09-20 08:13 | PN ---
Physical Exam: SUBJECTIVE: Patient seen and examined resting comfortably in bed. Pt reports that she has a headache this morning, but improving. No events overnight and pressure has been relatively paulo throughout. Pt wants to drink a little water, but doesn't feel hungry nor has had a BM just yet. OBJECTIVE: Vital Signs Period Temp Pulse Resp BP Sys/Contreras Pulse Ox Last 24 Hr 98.1 F-98.9 F 88-121 18-20 99-163/63-96 96-99 GENERAL: NAD, awake, alert, and fully oriented HEENT: NC/AT, EOMI, ISABELLE, MMM LUNGS: CTA bilaterally, no wheezes, no crackles, no accessory muscle use. HEART: RRR @86bpm, S1, S2 without murmur ABDOMEN: Soft, nondistended, diffusely tender with RUQ>LUQ>lower quadrants, hypoactive bowel sounds currently, no guarding, no rebound. EXTREMITIES: 2+ DP pulses, warm, well-perfused, no edema. PSYCH: Normal mood, normal affect. SKIN: Warm, dry, no rashes or lesions noted Laboratory Results - last 24 hr 09/19/18 09/19/18 02:59 06:20 Total Counted 100 Neutrophils % (Manual) 81.0 Band Neutrophils % 5.0 Lymphocytes % (Manual) 7.0 L Monocytes % (Manual) 7 Platelet Estimate Adequate Platelet Comment No clumping noted PT with INR 11.80 INR 1.00 PTT (Actin FS) 26.8 Active Medications Generic Name Dose Route Start Last Admin Trade Name Freq PRN Reason Stop Dose Admin Heparin Sodium (Porcine) 5,000 unit 09/19/18 06:15 09/20/18 05:32 Heparin - SQ 5,000 unit TID EARNESTINE Administration Lactated Ringer's 1,000 ml in 1,000 mls @ 200 mls/hr 09/19/18 09:45 09/20/18 06:49 Lactated Ringers Solution IV 200 mls/hr ASDIR EARNESTINE Administration Morphine Sulfate 2 mg 09/19/18 05:59 09/20/18 00:17 Morphine Sulfate IVPUSH 2 mg Q6H PRN Administration PAIN LEVEL 6-10 Pantoprazole Sodium 40 mg 09/20/18 10:00 Protonix Iv IVPUSH DAILY EARNESTINE ASSESSMENT/PLAN: 73yo F with PMHx of HTN with symptoms of epigastric pain, NBNB vomiting who was admitted for pancreatitis as confirmed by CT A/P Acute pancreatitis HTN --Unclear etiology, however scheduled for MRCP --Not likely alcohol induced or medication induced --Triglyceride cause r/o --Workup ongoing for cholelithiasis-induced --GI consulted and recommendations appreciated --LR@200cc/hr; would maintain with serial lung auscultation to avoid overload --Continue Morphine 2q6h PRN with possible one time doses of dilaudid 0.5mg ( had one dose overnight) --Would avoid increasing morphine due to some adverse effects noted in ED yesterday --Will remain NPO due to significant pain, however would like to enterally stimulate pending some improvement by tomorrow --Calcium remains WNL --Due to respiratory atelectasis 2/2 to splinting incentive spirometer ordered alongside of pain control --Will maintain NPO status, low BP this AM likely due to Dilaudid one time dose at night; rpt 150's systolic today; will control pain better and add antihypertensives if necessary --Maintain MAP >65 FEN: Fluids: LR@200cc/hr as above Electrolyte abnormalities: Nutrition: NPO PPX: DVT - Heparin SQ TID GI - Protonix 40mg qDaily Code status: Full Dispo: Continue M/S monitoring Case discussed with Dr. Emmanuel Lowe, DO - IM PGY-2 Visit type - Emergency Visit Emergency Visit: Yes ED Registration Date: 09/19/18 Care time: The patient presented to the Emergency Department on the above date and was hospitalized for further evaluation of their emergent condition. - New Patient This patient is new to me today: No - Critical Care Critical Care patient: No
[2018-09-20 09:04] LABS: BASO % 0.1 % (0-2.0); HEMATOCRIT 42.2 % (32.4-45.2); HEMOGLOBIN 14.1 GM/dL (10.7-15.3); LYMPH % 5.4 % (8-40); MCH 30.4 pg (25.7-33.7); MCHC 33.3 g/dl (32.0-36.0); MEAN CELL VOLUME 91.3 fl (80-96); MEAN PLT VOLUME 8.9 fl (7.5-11.1); MONO % 6.3 % (3.8-10.2); NEUT % 88.2 % (42.8-82.8); PLATELET COUNT 266 K/MM3 (134-434); RBC 4.63 M/mm3 (3.60-5.2); WHITE BLOOD COUNT 21.6 K/mm3 (4.0-10.0)
[2018-09-20] MEDS: PANTOPRAZOLE SODIUM 40 MG VIAL IVPUSH SCH (09:43)
[2018-09-20 10:14] LABS: ALK PHOS 78 U/L (45-117); ANION GAP 10 MMOL/L (8-16); BILIRUBIN,DIRECT 0.2 mg/dL (0.0-0.2); BILIRUBIN,TOTAL 0.6 mg/dL (0.2-1); BLOOD UREA NITROGEN 32 mg/dL (7-18); CHLORIDE 106 mmol/L (98-107); CO2 27 mmol/L (21-32); GLUCOSE,RANDOM 83 mg/dL (74-106); LIPASE 6096 U/L (73-393); POTASSIUM 4.3 mmol/L (3.5-5.1); SGOT/AST 40 U/L (15-37); SGPT/ALT 70 U/L (13-61); SODIUM 142 mmol/L (136-145)
--- NOTE | 2018-09-20 10:37 | PN ---
Progress Note (short form) - Note Progress Note: Attending Surgeon Seen in f/u; states she feels better; no nausea and/or vomiting VSS AF abdo-soft; less tender; o/w negative WBC 21; lipase decreased IMP: gallstone pancreatitis PLAN: Aggressive IV hydration; IVABS; trend WBC/lipase and amylase; keep NPO. Wade Arcos MD FACS
[2018-09-20] MEDS ORDERED: ONDANSETRON 4 MG/2 ML VIAL IVPUSH ONE (10:48)
--- NOTE | 2018-09-20 10:56 | PN ---
Progress Note (short form) - Note Progress Note: Feels better today, less pain. No CP or SOB. NAD on RA. Intake & Output 09/17/18 09/18/18 09/19/18 09/20/18 23:59 23:59 23:59 23:59 Intake Total 2460 Balance 2460 Weight 150 lb 9.6 oz Last Vital Signs Temp Pulse Resp BP Pulse Ox 98.2 F 88 18 99/63 99 09/20/18 05:44 09/20/18 05:44 09/20/18 05:44 09/20/18 05:44 09/19/18 21:00 Active Medications Heparin Sodium (Porcine) (Heparin -) 5,000 unit SQ TID [facility] Last Admin: 09/20/18 05:32 Dose: 5,000 unit Hydromorphone HCl (Dilaudid Injection -) 0.5 mg IVPUSH Q6H PRN PRN Reason: PAIN LEVEL 7 - 10 Lactated Ringer's (Lactated Ringers Solution) 1,000 ml in 1,000 mls @ 200 mls/ hr IV ASDIR [facility] Last Admin: 09/20/18 06:49 Dose: 200 mls/hr Pantoprazole Sodium (Protonix Iv) 40 mg IVPUSH DAILY [facility] Last Admin: 09/20/18 09:43 Dose: 40 mg General: Awake, alert, and fully oriented, in no acute distress Head: No signs of trauma Eyes: EOMI, sclera anicteric ENT: Dry mucus membranes Neck: Normal ROM, supple Lungs: Lungs clear, Normal breath sounds Cardio: Regular rhythm, S1 and S2 present Abdomen: Tender to palpation in the epigastrium. Soft, nondistended. +guarding, no rebound, no masses Extremities: Normal range of motion, Distal pulses present SKIN: Warm, Dry, normal turgor Neurologic: Non-focal Labs: Laboratory Results - last 24 hr 09/20/18 09/20/18 07:15 07:15 WBC 21.6 H RBC 4.63 Hgb 14.1 Hct 42.2 MCV 91.3 MCH 30.4 MCHC 33.3 RDW 15.0 Plt Count 266 MPV 8.9 Absolute Neuts (auto) 19.0 H Neutrophils % 88.2 H Lymphocytes % 5.4 L D Monocytes % 6.3 Eosinophils % 0.0 D Basophils % 0.1 Nucleated RBC % 0 Sodium 142 Potassium 4.3 Chloride 106 Carbon Dioxide 27 Anion Gap 10 BUN 32 H Creatinine 1.0 Creat Clearance w eGFR 54.50 Random Glucose 83 Calcium 8.0 L Total Bilirubin 0.6 Direct Bilirubin 0.2 AST 40 H ALT 70 H Alkaline Phosphatase 78 C-Reactive Protein 7.9 H Total Protein 6.0 L Albumin 3.0 L Lipase 6096 H Assessment/Plan Suspect Gallstone Pancreatitis with possible passage of the stone Currently improved and hemodynamically stable with no indication of systemic morbidity LL atelectasis due to splinting Continued IVF resuscitation with LR Monitor off ABX O2 as needed Incentive Spirometry VTE prophylaxis Dr Stubbs
[2018-09-20 12:36] LABS: ANISOCYTOSIS 0; MACROCYTOSIS 0; PLATELET ESTIMATE NORMAL
[2018-09-20] MEDS: HYDROmorphone HCl 2 MG/ML VIAL IVPB PRN (13:53)
[2018-09-20] MEDS ORDERED: HYDROmorphone HCL CARPU-JECT 2 MG/1 ML DISP.SYRIN IVPUSH PRN (14:00)
--- NOTE | 2018-09-20 14:01 | PN ---
Teaching Attending Note Name of Resident: Zeke Lowe ATTENDING PHYSICIAN STATEMENT I saw and evaluated the patient. I reviewed the resident's note and discussed the case with the resident. I agree with the resident's findings and plan as documented. SUBJECTIVE: Ongoing abdominal pain. No fever/chills. No nausea/vomiting/diarrhea /melena/hematochezia. OBJECTIVE: Afebrile, Hemodynamically Stable. Last Vital Signs Temp Pulse Resp BP Pulse Ox 98.2 F 88 18 99/63 99 09/20/18 05:44 09/20/18 05:44 09/20/18 05:44 09/20/18 05:44 09/19/18 21:00 HEENT - Atraumatic, Normocephalic. Heart -S1, S2, soft SM. Lungs - clear to auscultation. Abdomen - Generalized tenderness worse in epigastric and RUQ tenderness. No guarding/rebound. Bowel Sounds normal. Extremities - no calf swelling/tenderness. Laboratory Results - last 24 hr 09/20/18 09/20/18 07:15 07:15 WBC 21.6 H RBC 4.63 Hgb 14.1 Hct 42.2 MCV 91.3 MCH 30.4 MCHC 33.3 RDW 15.0 Plt Count 266 MPV 8.9 Absolute Neuts (auto) 19.0 H Neutrophils % 88.2 H Neutrophils % (Manual) 88.1 H Band Neutrophils % 1.0 Lymphocytes % 5.4 L D Lymphocytes % (Manual) 0.0 L Monocytes % 6.3 Monocytes % (Manual) 6 Eosinophils % 0.0 D Eosinophils % (Manual) 0.0 Basophils % 0.1 Basophils % (Manual) 0.0 Myelocytes % (Man) 0 Promyelocytes % (Man) 0 Blast Cells % (Manual) 0 Nucleated RBC % 0 Metamyelocytes 0 Hypochromia 0 Platelet Estimate Normal Polychromasia 0 Poikilocytosis 0 Anisocytosis 0 Microcytosis 0 Macrocytosis 0 Sodium 142 Potassium 4.3 Chloride 106 Carbon Dioxide 27 Anion Gap 10 BUN 32 H Creatinine 1.0 Creat Clearance w eGFR 54.50 Random Glucose 83 Calcium 8.0 L Total Bilirubin 0.6 Direct Bilirubin 0.2 AST 40 H ALT 70 H Alkaline Phosphatase 78 C-Reactive Protein 7.9 H Total Protein 6.0 L Albumin 3.0 L Lipase 6096 H Current Medications Generic Name Dose Route Start Last Admin Trade Name Freq PRN Reason Stop Dose Admin Heparin Sodium (Porcine) 5,000 unit 09/19/18 06:15 09/20/18 13:57 Heparin - SQ 5,000 unit TID EARNESTINE Administration Hydromorphone HCl 0.5 mg 09/20/18 14:00 09/20/18 13:53 Dilaudid Vial - IVPB 0.5 mg Q6H PRN Administration PAIN LEVEL 7 - 10 Lactated Ringer's 1,000 ml in 1,000 mls @ 200 mls/hr 09/19/18 09:45 09/20/18 12:45 Lactated Ringers Solution IV 200 mls/hr ASDIR EARNESTINE Administration Pantoprazole Sodium 40 mg 09/20/18 10:00 09/20/18 09:43 Protonix Iv IVPUSH 40 mg DAILY EARNESTINE Administration ASSESSMENT AND PLAN: 73 year old female with HTN, presents with epigastric abdominal pain/nausea/ vomiting, started after dinner 09/18. 1. Severe Pancreatitis, likely sec to Gallstones. Leukocytosis. Afebrile. Lipase > 30,000 on admission, down to 6096 AST 263 ---> 178 ---> 40 ALT 186 ---> 162 ---> [address] - findings consistent with acute pancreatitis without abscess or pseudocyst. Abdominal US - Gallstones without sonographic evidence of acute cholecystitis, fatty liver. Continue NPO, IV Hydration. Monitor electrolytes. Analgesia with Dilaudid. GI and Surgery following. MRCP pending. 2. HTN - normally on Lisinopril, will hold. DVT Px - Heparin SQ GI Px - Protonix IV
--- NOTE | 2018-09-20 15:24 | PN ---
GI Progress Note Subjective: coverage for Dr Miller patient continue to have moderate abdominal pain, better than yesterday, denies nausea, vomiting, chest pain,nor SOB. On room air her saturation was 89 percent. Her LFTS, amylase and lipase trended downwards but on eview of her records she contiue to have evidence of SIRS. - Objective Vital Signs: Vital Signs Temperature 98.9 F 09/20/18 14:31 Pulse Rate 116 H 09/20/18 14:31 Respiratory Rate 20 09/20/18 14:31 Blood Pressure 155/94 09/20/18 14:31 O2 Sat by Pulse Oximetry (%) 99 09/19/18 21:00 Constitutional: No Distress, Other (O@ sat at 89 improved bernardo 96 after oredering humidified oxygen) HENT: Yes: Atraumatic, Tonsillar Exudate Cardiovascular: Yes: Regular Rate and Rhythm Respiratory: Yes: Diminished (at bases) Gastrointestinal Inspection: Yes: Distention ...Auscultate: Yes: Hypoactive Bowel Sounds ...Palpate: Yes: Soft, Tenderness (--diffuse). No: Firm/Rigid, Guarding, Hepatomegaly, Pulsatile Mass, Splenomegaly Labs: CBC, BMP 09/20/18 07:15 09/20/18 07:15 INR, PTT INR 1.00 (0.83-1.09) 09/19/18 06:20 CBCD WBC 21.6 K/mm3 (4.0-10.0) H 09/20/18 07:15 RBC 4.63 M/mm3 (3.60-5.2) 09/20/18 07:15 Hgb 14.1 GM/dL (10.7-15.3) 09/20/18 07:15 Hct 42.2 % (32.4-45.2) 09/20/18 07:15 MCV 91.3 fl (80-96) 09/20/18 07:15 MCHC 33.3 g/dl (32.0-36.0) 09/20/18 07:15 RDW 15.0 % (11.6-15.6) 09/20/18 07:15 Plt Count 266 K/MM3 (134-434) 09/20/18 07:15 MPV 8.9 fl (7.5-11.1) 09/20/18 07:15 CMP Sodium 142 mmol/L (136-145) 09/20/18 07:15 Potassium 4.3 mmol/L (3.5-5.1) 09/20/18 07:15 Chloride 106 mmol/L (98-107) 09/20/18 07:15 Carbon Dioxide 27 mmol/L (21-32) 09/20/18 07:15 Anion Gap 10 MMOL/L (8-16) 09/20/18 07:15 BUN 32 mg/dL (7-18) H 09/20/18 07:15 Creatinine 1.0 mg/dL (0.55-1.3) 09/20/18 07:15 Creat Clearance w eGFR 54.50 (>60) 09/20/18 07:15 Calcium 8.0 mg/dL (8.5-10.1) L 09/20/18 07:15 Total Bilirubin 0.6 mg/dL (0.2-1) 09/20/18 07:15 AST 40 U/L (15-37) H 09/20/18 07:15 ALT 70 U/L (13-61) H 09/20/18 07:15 Alkaline Phosphatase 78 U/L (45-117) 09/20/18 07:15 Total Protein 6.0 g/dl (6.4-8.2) L 09/20/18 07:15 Albumin 3.0 g/dl (3.4-5.0) L 09/20/18 07:15 Problem List - Problems (1) Acute gallstone pancreatitis Assessment/Plan: --severe R> chest x-ray to r/o pleural effusion vs atelectasis IV hydration nasal Oxygen d/w with Dr Carmona asked to consider ICU monitoring d/w her nurse will need to keep saturation above 90 and call ICU resident to reassess patient in 2 hours Code(s): K85.10 - BILIARY ACUTE PANCREATITIS WITHOUT NECROSIS OR INFECTION
--- NOTE | 2018-09-20 15:34 | PN ---
Progress Note (short form) - Note Progress Note: Pt desaturated to 89% on RA while sleeping. Evaluated pt on floor. Pt on 2LNC with saturation 98% now. Pt remains tachycardic at 106bpm and BP of 156 systolic. Pt NAD and arousable to voice at bedside. Bibasillar crackles noted on lung auscultation. Decreased fluids to LR @ 100cc/hr. Will expect pt to mobilize fluid and have breathing improve. Continue to monitor. Maintain SpO2 > 90%
[2018-09-20] MEDS: ONDANSETRON 4 MG/2 ML VIAL IVPB SCH ×3 (16:26→22:07)
[2018-09-20] MEDS ORDERED: IBUPROFEN 600 MG TABLET (FP) PO ONE (16:30)
[2018-09-20] MEDS ORDERED: PROCHLORPERAZINE INJECTION 10 MG/2 ML VIAL IVPB ONE (22:16)
[2018-09-21] MEDS: ONDANSETRON 4 MG/2 ML VIAL IVPB SCH (01:10)
[2018-09-21] MEDS ORDERED: ONDANSETRON 4 MG/2 ML VIAL IVPUSH PRN (02:00)
[2018-09-21] MEDS: HEPARIN NA (PORCINE) 5,000 UNITS/ML 1ML VIAL SQ SCH ×3 (05:46→21:52)
[2018-09-21] MEDS: HYDROmorphone HCl 2 MG/ML VIAL IVPB PRN ×3 (06:19→23:23)
[2018-09-21 06:47] LABS: HEMOGLOBIN 12.2 GM/dL (10.7-15.3); MCH 30.1 pg (25.7-33.7); MEAN CELL VOLUME 91.2 fl (80-96); MEAN PLT VOLUME 8.7 fl (7.5-11.1); PLATELET COUNT 212 K/MM3 (134-434); RBC 4.05 M/mm3 (3.60-5.2); RDW 15.2 % (11.6-15.6); WHITE BLOOD COUNT 20.4 K/mm3 (4.0-10.0)
[2018-09-21 07:23] LABS: ALBUMIN 2.5 g/dl (3.4-5.0); ALK PHOS 63 U/L (45-117); ANION GAP 7 MMOL/L (8-16); BILIRUBIN,TOTAL 0.8 mg/dL (0.2-1); BLOOD UREA NITROGEN 21 mg/dL (7-18); CALCIUM 8.1 mg/dL (8.5-10.1); CHLORIDE 106 mmol/L (98-107); CO2 30 mmol/L (21-32); CREATININE 0.8 mg/dL (0.55-1.3); GLUCOSE,RANDOM 65 mg/dL (74-106); MAGNESIUM 2.2 mg/dL (1.8-2.4); PHOSPHOROUS 2.7 mg/dL (2.5-4.9); SGOT/AST 30 U/L (15-37); SGPT/ALT 44 U/L (13-61); SODIUM 143 mmol/L (136-145); TOT PROT 5.4 g/dl (6.4-8.2)
[2018-09-21] MEDS: PANTOPRAZOLE SODIUM 40 MG VIAL IVPUSH SCH (09:20)
--- NOTE | 2018-09-21 10:45 | PN ---
Progress Note (short form) - Note Progress Note: Lying flat on back and comfortable on RA. Feels better today No CP or SOB. Intake & Output 09/18/18 09/19/18 09/20/18 09/21/18 23:59 23:59 23:59 23:59 Intake Total 4460 1360 Balance 4460 1360 Weight 150 lb 9.6 oz Last Vital Signs Temp Pulse Resp BP Pulse Ox 97.5 F L 114 H 20 152/68 98 09/21/18 05:43 09/21/18 05:43 09/21/18 05:43 09/21/18 05:43 09/21/18 09:00 Active Medications Heparin Sodium (Porcine) (Heparin -) 5,000 unit SQ TID [facility] Last Admin: 09/21/18 05:46 Dose: 5,000 unit Hydromorphone HCl (Dilaudid Vial -) 0.5 mg IVPB Q6H PRN PRN Reason: PAIN LEVEL 7 - 10 Last Admin: 09/21/18 06:19 Dose: 0.5 mg Lactated Ringer's (Lactated Ringers Solution) 1,000 ml in 1,000 mls @ 100 mls/ hr IV ASDIR [facility] Last Admin: 09/20/18 22:07 Dose: 100 mls/hr Ondansetron HCl (Zofran Injection) 4 mg IVPUSH Q4H PRN PRN Reason: NAUSEA AND/OR VOMITING Pantoprazole Sodium (Protonix Iv) 40 mg IVPUSH DAILY [facility] Last Admin: 09/21/18 09:20 Dose: 40 mg General: Awake, alert, and fully oriented, in no acute distress Head: No signs of trauma Eyes: EOMI, sclera anicteric ENT: Dry mucus membranes Neck: Normal ROM, supple Lungs: Bibasilar crackles / rhonchi Cardio: Regular rhythm, S1 and S2 present Abdomen: Tender to palpation in the epigastrium. Soft, nondistended. +guarding, no rebound, no masses Extremities: Normal range of motion, Distal pulses present SKIN: Warm, Dry, normal turgor Neurologic: Non-focal Labs: Laboratory Results - last 24 hr 09/20/18 09/21/18 09/21/18 07:15 05:15 05:20 WBC 20.4 H RBC 4.05 Hgb 12.2 Hct 37.0 MCV 91.2 MCH 30.1 MCHC 33.0 RDW 15.2 Plt Count 212 D MPV 8.7 Neutrophils % (Manual) 88.1 H Band Neutrophils % 1.0 Lymphocytes % (Manual) 0.0 L Monocytes % (Manual) 6 Eosinophils % (Manual) 0.0 Basophils % (Manual) 0.0 Myelocytes % (Man) 0 Promyelocytes % (Man) 0 Blast Cells % (Manual) 0 Nucleated RBC % 0 Metamyelocytes 0 Hypochromia 0 Platelet Estimate Normal Polychromasia 0 Poikilocytosis 0 Anisocytosis 0 Microcytosis 0 Macrocytosis 0 Sodium 143 Potassium 4.0 Chloride 106 Carbon Dioxide 30 Anion Gap 7 L BUN 21 H Creatinine 0.8 Creat Clearance w eGFR > 60 Random Glucose 65 L Calcium 8.1 L Phosphorus 2.7 Magnesium 2.2 Total Bilirubin 0.8 AST 30 ALT 44 Alkaline Phosphatase 63 Total Protein 5.4 L Albumin 2.5 L Assessment/Plan Suspect Gallstone Pancreatitis with possible passage of the stone Currently improved and hemodynamically stable with no indication of systemic morbidity LL atelectasis due to splinting Noted LR reduced due to respiratory insufficiency yesterday Monitor off ABX O2 as needed Incentive Spirometry VTE prophylaxis Dr Stubbs
[2018-09-21] MEDS ORDERED: ACETAMINOPHEN 1000 MG/100 ML VIAL (NON FORMULARY) IVPB STA (10:54)
--- NOTE | 2018-09-21 12:27 | PN ---
Progress Note (short form) - Note Progress Note: SUBJECTIVE: Ongoing abdominal pain. Headache. No fever/chills. No visual disturbance. No nausea/vomiting/diarrhea/melena/hematochezia. OBJECTIVE: Afebrile, Hemodynamically Stable. Last Vital Signs Temp Pulse Resp BP Pulse Ox 97.5 F L 114 H 20 152/68 98 09/21/18 05:43 09/21/18 05:43 09/21/18 05:43 09/21/18 05:43 09/21/18 09:00 HEENT - Atraumatic, Normocephalic. Heart -S1, S2, soft SM. Lungs - clear to auscultation. Abdomen - Generalized tenderness worse in epigastric and RUQ tenderness. No guarding/rebound. Bowel Sounds normal. Extremities - no calf swelling/tenderness. Laboratory Results - last 24 hr 09/20/18 09/21/18 09/21/18 07:15 05:15 05:20 WBC 20.4 H RBC 4.05 Hgb 12.2 Hct 37.0 MCV 91.2 MCH 30.1 MCHC 33.0 RDW 15.2 Plt Count 212 D MPV 8.7 Neutrophils % (Manual) 88.1 H Band Neutrophils % 1.0 Lymphocytes % (Manual) 0.0 L Monocytes % (Manual) 6 Eosinophils % (Manual) 0.0 Basophils % (Manual) 0.0 Myelocytes % (Man) 0 Promyelocytes % (Man) 0 Blast Cells % (Manual) 0 Nucleated RBC % 0 Metamyelocytes 0 Hypochromia 0 Platelet Estimate Normal Polychromasia 0 Poikilocytosis 0 Anisocytosis 0 Microcytosis 0 Macrocytosis 0 Sodium 143 Potassium 4.0 Chloride 106 Carbon Dioxide 30 Anion Gap 7 L BUN 21 H Creatinine 0.8 Creat Clearance w eGFR > 60 Random Glucose 65 L Calcium 8.1 L Phosphorus 2.7 Magnesium 2.2 Total Bilirubin 0.8 AST 30 ALT 44 Alkaline Phosphatase 63 Total Protein 5.4 L Albumin 2.5 L Current Medications Generic Name Dose Route Start Last Admin Trade Name Freq PRN Reason Stop Dose Admin Heparin Sodium (Porcine) 5,000 unit 09/19/18 06:15 09/21/18 05:46 Heparin - SQ 5,000 unit TID EARNESTINE Administration Hydromorphone HCl 0.5 mg 09/20/18 14:00 09/21/18 06:19 Dilaudid Vial - IVPB 0.5 mg Q6H PRN Administration PAIN LEVEL 7 - 10 Lactated Ringer's 1,000 ml in 1,000 mls @ 100 mls/hr 09/20/18 15:07 09/20/18 22:07 Lactated Ringers Solution IV 100 mls/hr ASDIR EARNESTINE Administration Ondansetron HCl 4 mg 09/21/18 02:00 Zofran Injection IVPUSH Q4H PRN NAUSEA AND/OR VOMITING Pantoprazole Sodium 40 mg 09/20/18 10:00 09/21/18 09:20 Protonix Iv IVPUSH 40 mg DAILY EARNESTINE Administration ASSESSMENT AND PLAN: 73 year old female with HTN, presents with epigastric abdominal pain/nausea/ vomiting, started after dinner 09/18. 1. Severe Pancreatitis, likely sec to Gallstones. Leukocytosis ongoing. Afebrile. Lipase > 30,000 on admission, down to 6096 AST 263 ---> 178 ---> 40 ---> 30 ALT 186 ---> 162 ---> 70 ---> [address] - findings consistent with acute pancreatitis without abscess or pseudocyst. Abdominal US - Gallstones without sonographic evidence of acute cholecystitis, fatty liver. Continue NPO, IV Hydration. Monitor electrolytes. Analgesia with Dilaudid. MRCP result pending. GI and Surgery following. 2. HTN - normally on Lisinopril, will hold. 3. Mild desaturation in SpO2 09/20/18 with CXR showing congestive findings with bibasilar atelectasis with pleural fluid. LR rate decreased to 100ml/hr. DVT Px - Heparin SQ GI Px - Protonix IV Visit type - Emergency Visit Emergency Visit: Yes ED Registration Date: 09/19/18 Care time: The patient presented to the Emergency Department on the above date and was hospitalized for further evaluation of their emergent condition. - New Patient This patient is new to me today: No - Critical Care Critical Care patient: No - Discharge Referral Referred to [facility] Med P.C.: No
--- NOTE | 2018-09-21 12:32 | PN ---
Progress Note (short form) - Note Progress Note: Attending Surgeon Less pain VSS AF abdo-shearing machine tender but less WBC-down slightly IMP: gallstone pancreatitis PLAN: NPO/IVF/IVABS/amylase/lipase/LFT's. Wade Arcos MD FACS
[2018-09-21] MEDS: LACTATED RINGERS SOLUTION 1,000 ML/1,000 ML INFUS.BAG IV SCH ×2 (15:19→21:52)
[2018-09-21] MEDS ORDERED: ACETAMINOPHEN 325 MG TABLET (FP) PO ONE (23:13)
[2018-09-22] MEDS: HEPARIN NA (PORCINE) 5,000 UNITS/ML 1ML VIAL SQ SCH ×3 (05:08→21:51)
[2018-09-22] MEDS: HYDROmorphone HCl 2 MG/ML VIAL IVPB PRN ×2 (06:37→14:13)
[2018-09-22 06:38] LABS: BASO % 0.1 % (0-2.0); EOS % 0.2 % (0-4.5); HEMATOCRIT 33.6 % (32.4-45.2); HEMOGLOBIN 11.6 GM/dL (10.7-15.3); MCH 31.2 pg (25.7-33.7); MCHC 34.5 g/dl (32.0-36.0); MEAN CELL VOLUME 90.5 fl (80-96); MEAN PLT VOLUME 8.2 fl (7.5-11.1); MONO % 5.5 % (3.8-10.2); NEUT % 89.2 % (42.8-82.8); PLATELET COUNT 214 K/MM3 (134-434); RBC 3.72 M/mm3 (3.60-5.2); RDW 14.7 % (11.6-15.6); WHITE BLOOD COUNT 16.3 K/mm3 (4.0-10.0)
[2018-09-22 07:36] LABS: ALBUMIN 2.4 g/dl (3.4-5.0); ALK PHOS 67 U/L (45-117); AMYLASE 229 U/L (25-115); ANION GAP 5 MMOL/L (8-16); BILIRUBIN,TOTAL 0.8 mg/dL (0.2-1); BLOOD UREA NITROGEN 21 mg/dL (7-18); CHLORIDE 104 mmol/L (98-107); CO2 31 mmol/L (21-32); CREATININE 0.7 mg/dL (0.55-1.3); GLUCOSE,RANDOM 69 mg/dL (74-106); LIPASE 308 U/L (73-393); SGOT/AST 30 U/L (15-37); SGPT/ALT 34 U/L (13-61); SODIUM 140 mmol/L (136-145); TOT PROT 5.8 g/dl (6.4-8.2)
[2018-09-22] MEDS: PANTOPRAZOLE SODIUM 40 MG VIAL IVPUSH SCH (09:35)
--- NOTE | 2018-09-22 09:37 | PN ---
Progress Note (short form) - Note Progress Note: Pt seen and examined. Reports continued abdominal pain, improved with pain meds. Has been oob with assistance. No issues overnight. Denies cp/sob, n/v/d. Vital Signs Temp 98.4 F 09/22/18 07:00 Pulse 96 H 09/22/18 07:00 Resp 20 09/22/18 07:00 BP 147/84 09/22/18 07:00 Pulse Ox 98 09/21/18 21:00 Intake & Output 09/21/18 09/21/18 09/22/18 11:59 23:59 11:59 Intake Total 1360 330 900 Balance 1360 330 900 Intake: IV 1000 300 700 LACTATED RINGERS SOLUTION 1000 300 700 1,000 ml In 1,000 ml @ 100 mls/hr IV ASDIR EARNESTINE Rx#:[id number] IVPB 350 200 Oral 10 30 0 Other: Voiding Method Toilet Toilet Toilet # Unmeasured Voids Void 3 2 Bowel Movement No No CBC, BMP 09/22/18 06:30 09/22/18 06:30 Hepatic Panel Total Bilirubin 0.8 mg/dL (0.2-1) 09/22/18 06:30 Direct Bilirubin 0.2 mg/dL (0.0-0.2) 09/20/18 07:15 AST 30 U/L (15-37) 09/22/18 06:30 ALT 34 U/L (13-61) 09/22/18 06:30 Alkaline Phosphatase 67 U/L (45-117) 09/22/18 06:30 Albumin 2.4 g/dl (3.4-5.0) L 09/22/18 06:30 Gen: awake, alert, nad, laying in bed Resp: unlabored Abdomen: soft, minimally distended, + ttp diffusely, no rebound or guarding A/P: 73 y/o F w/ PMHx htn, admitted 09/19 with epigastric pain, nausea/vomiting , found to have gallstone pancreatitis. Stable, continues to have abdominal pain. Afebrile, tachy likely secondary to pain Leukocytosis/LFTs trending down -Continue NPO/IVF -Trend labs (cbc, LFTS, amylase/lipase) -Will discuss plan for timing of cholecystectomy with Dr Arcos
--- NOTE | 2018-09-22 10:00 | PN ---
Progress Note (short form) - Note Progress Note: Still with abdominal pain. No CP or SOB. Intake & Output 09/19/18 09/20/18 09/21/18 09/22/18 23:59 23:59 23:59 23:59 Intake Total 4460 1690 900 Balance 4460 1690 900 Weight 150 lb 9.6 oz Last Vital Signs Temp Pulse Resp BP Pulse Ox 98.4 F 96 H 20 147/84 98 09/22/18 07:00 09/22/18 07:00 09/22/18 07:00 09/22/18 07:00 09/21/18 21:00 Active Medications Heparin Sodium (Porcine) (Heparin -) 5,000 unit SQ TID [facility] Last Admin: 09/22/18 05:08 Dose: Not Given Hydromorphone HCl (Dilaudid Vial -) 0.5 mg IVPB Q6H PRN PRN Reason: PAIN LEVEL 7 - 10 Last Admin: 09/22/18 06:37 Dose: 0.5 mg Lactated Ringer's (Lactated Ringers Solution) 1,000 ml in 1,000 mls @ 100 mls/ hr IV ASDIR [facility] Last Admin: 09/21/18 21:52 Dose: 100 mls/hr Ondansetron HCl (Zofran Injection) 4 mg IVPUSH Q4H PRN PRN Reason: NAUSEA AND/OR VOMITING Pantoprazole Sodium (Protonix Iv) 40 mg IVPUSH DAILY [facility] Last Admin: 09/22/18 09:35 Dose: 40 mg General: Awake, alert, and oriented, in no acute distress Head: No signs of trauma Eyes: EOMI, sclera anicteric ENT: Dry mucus membranes Neck: Normal ROM, supple Lungs: Bibasilar crackles / rhonchi Cardio: Regular rhythm, S1 and S2 present Abdomen: Tender to palpation, Soft, (+) BS Extremities: (+) PP SKIN: Warm, Dry, normal turgor Neurologic: Non-focal Labs: Laboratory Results - last 24 hr 09/22/18 09/22/18 06:30 06:30 WBC 16.3 H RBC 3.72 Hgb 11.6 Hct 33.6 MCV 90.5 MCH 31.2 MCHC 34.5 RDW 14.7 Plt Count 214 MPV 8.2 Absolute Neuts (auto) 14.5 H Neutrophils % 89.2 H Lymphocytes % 5.0 L Monocytes % 5.5 Eosinophils % 0.2 D Basophils % 0.1 Nucleated RBC % 0 Sodium 140 Potassium 4.0 Chloride 104 Carbon Dioxide 31 Anion Gap 5 L BUN 21 H Creatinine 0.7 Creat Clearance w eGFR > 60 Random Glucose 69 L Calcium 8.0 L Total Bilirubin 0.8 AST 30 ALT 34 Alkaline Phosphatase 67 Total Protein 5.8 L Albumin 2.4 L Total Amylase 229 H Lipase 308 Assessment/Plan Suspect Gallstone Pancreatitis with possible passage of the stone Currently improved and hemodynamically stable with no indication of systemic morbidity LL atelectasis due to splinting IVF: LR Remains off ABX O2 as needed Incentive Spirometry VTE prophylaxis Dr Stubbs
[2018-09-22] MEDS ORDERED: ACETAMINOPHEN 1000 MG/100 ML VIAL (NON FORMULARY) IVPB ONE (11:06)
--- NOTE | 2018-09-22 11:10 | PN ---
Physical Exam: SUBJECTIVE: Patient seen and examined this AM. She states she is still having pain in her abdomen and slight headache though improved from yesterday. OBJECTIVE: Vital Signs Period Temp Pulse Resp BP Sys/Contreras Pulse Ox Last 24 Hr 98.0 F-99 F 96-108 20-20 138-157/70-92 98-98 GENERAL: A&O, mild distress HEAD: Normocephalic, atraumatic. EYES: no scleral icterus EARS, NOSE, THROAT: oropharynx clear without exudates. Moist mucous membranes. NECK: supple without lymphadenopathy LUNGS: CTA b/l, no crackles or wheezes HEART: Regular rate and rhythm, normal S1 and S2 without murmur ABDOMEN: Soft, tender to palpation in epigastric region, normoactive bowel sounds EXTREMITIES: 2+ pulses, warm, well-perfused. No peripheral edema. Laboratory Results - last 24 hr 09/22/18 09/22/18 06:30 06:30 WBC 16.3 H RBC 3.72 Hgb 11.6 Hct 33.6 MCV 90.5 MCH 31.2 MCHC 34.5 RDW 14.7 Plt Count 214 MPV 8.2 Absolute Neuts (auto) 14.5 H Neutrophils % 89.2 H Lymphocytes % 5.0 L Monocytes % 5.5 Eosinophils % 0.2 D Basophils % 0.1 Nucleated RBC % 0 Sodium 140 Potassium 4.0 Chloride 104 Carbon Dioxide 31 Anion Gap 5 L BUN 21 H Creatinine 0.7 Creat Clearance w eGFR > 60 Random Glucose 69 L Calcium 8.0 L Total Bilirubin 0.8 AST 30 ALT 34 Alkaline Phosphatase 67 Total Protein 5.8 L Albumin 2.4 L Total Amylase 229 H Lipase 308 Active Medications Generic Name Dose Route Start Last Admin Trade Name Freq PRN Reason Stop Dose Admin Acetaminophen 1,000 mg 09/22/18 11:06 Ofirmev Injection - IVPB 09/22/18 11:07 ONCE ONE Heparin Sodium (Porcine) 5,000 unit 09/19/18 06:15 09/22/18 05:08 Heparin - SQ Not Given TID EARNESTINE Hydromorphone HCl 0.5 mg 09/20/18 14:00 09/22/18 06:37 Dilaudid Vial - IVPB 0.5 mg Q6H PRN Administration PAIN LEVEL 7 - 10 Lactated Ringer's 1,000 ml in 1,000 mls @ 100 mls/hr 09/20/18 15:07 09/21/18 21:52 Lactated Ringers Solution IV 100 mls/hr ASDIR EARNESTINE Administration Ondansetron HCl 4 mg 09/21/18 02:00 Zofran Injection IVPUSH Q4H PRN NAUSEA AND/OR VOMITING Pantoprazole Sodium 40 mg 09/20/18 10:00 09/22/18 09:35 Protonix Iv IVPUSH 40 mg DAILY EARNESTINE Administration ASSESSMENT/PLAN: 73-year-old female with a past medical history of hypertension who comes into the emergency department complaining of a one-day history of epigastric pain, nausea and NBNB vomiting. Acute Pancreatitis, secondary to unknown cause -Lipase/Amylase too elevated to report on admission, resolved -Significant Epigastric pain -CT abdomen with pancreatic inflammation -GI consult appreciated -LR @ 75 cc/hr -Pain control with Dilauded 0.5 mg IV Q6 -LFTs improved, can receive IV tylenol as needed for further pain control -NPO for now, advance as per surgery pending plan for cholecystectomy HTN -Continue Lisinopril 10 mg DVT Prophylaxis -Heparin 5000 units SQ TID FEN -Fluids: LR @ 75 cc/hr -Electrolytes: No electrolyte abnormalities, BMP in AM -Nutrition: NPO Disposition Med/Surg Visit type - Emergency Visit Emergency Visit: Yes ED Registration Date: 09/19/18 Care time: The patient presented to the Emergency Department on the above date and was hospitalized for further evaluation of their emergent condition. - New Patient This patient is new to me today: No - Critical Care Critical Care patient: No
[2018-09-22] MEDS: LACTATED RINGERS SOLUTION 1,000 ML/1,000 ML INFUS.BAG IV SCH ×2 (11:12→14:12)
--- NOTE | 2018-09-22 11:49 | PN ---
Progress Note (short form) - Note Progress Note: Patient seen and examined; now on floor, sitting in chair Still with significant abdominal pain +flatus Vital Signs Temp 98.0 F 09/22/18 10:00 Pulse 97 H 09/22/18 10:00 Resp 20 09/22/18 10:00 BP 154/75 09/22/18 10:00 Pulse Ox 98 09/22/18 09:00 NAD soft, distended/tympanic, ttp diffusely CBC, BMP 09/22/18 06:30 09/22/18 06:30 Hepatic Panel Total Bilirubin 0.8 mg/dL (0.2-1) 09/22/18 06:30 Direct Bilirubin 0.2 mg/dL (0.0-0.2) 09/20/18 07:15 AST 30 U/L (15-37) 09/22/18 06:30 ALT 34 U/L (13-61) 09/22/18 06:30 Alkaline Phosphatase 67 U/L (45-117) 09/22/18 06:30 Albumin 2.4 g/dl (3.4-5.0) L 09/22/18 06:30 MRCP report reviewed, extensive pancreatitis, cholelithiasis but no choledocholithiasis. Impression: Gallstone pancreatitis. Renal function normalized. No walled off collection or necrosis. LR at least 250cc/hr, as heart/lungs can tolerate Daily liver tests Ultimate cholecystectomy after resolution of pancreatitis
--- NOTE | 2018-09-22 14:17 | PN ---
Teaching Attending Note Name of Resident: Christophe Dailey ATTENDING PHYSICIAN STATEMENT I saw and evaluated the patient. I reviewed the resident's note and discussed the case with the resident. I agree with the resident's findings and plan as documented. SUBJECTIVE: Ongoing abdominal pain improving. Headache improving. No fever/ chills. No visual disturbance. No nausea/vomiting/diarrhea/melena/hematochezia. OBJECTIVE: Afebrile, Hemodynamically Stable. Last Vital Signs Temp Pulse Resp BP Pulse Ox 98.2 F 87 20 145/74 98 09/22/18 14:06 09/22/18 14:06 09/22/18 14:06 09/22/18 14:09/22/18 09:00 HEENT - Atraumatic, Normocephalic. Heart -S1, S2, soft SM. Lungs - basal crackles. Abdomen - Generalized tenderness worse in epigastric and RUQ tenderness. No guarding/rebound. Bowel Sounds normal. Extremities - Mild edema. No calf swelling/tenderness. Laboratory Results - last 24 hr 09/22/18 09/22/18 06:30 06:30 WBC 16.3 H RBC 3.72 Hgb 11.6 Hct 33.6 MCV 90.5 MCH 31.2 MCHC 34.5 RDW 14.7 Plt Count 214 MPV 8.2 Absolute Neuts (auto) 14.5 H Neutrophils % 89.2 H Lymphocytes % 5.0 L Monocytes % 5.5 Eosinophils % 0.2 D Basophils % 0.1 Nucleated RBC % 0 Sodium 140 Potassium 4.0 Chloride 104 Carbon Dioxide 31 Anion Gap 5 L BUN 21 H Creatinine 0.7 Creat Clearance w eGFR > 60 Random Glucose 69 L Calcium 8.0 L Total Bilirubin 0.8 AST 30 ALT 34 Alkaline Phosphatase 67 Total Protein 5.8 L Albumin 2.4 L Total Amylase 229 H Lipase 308 Current Medications Generic Name Dose Route Start Last Admin Trade Name Freq PRN Reason Stop Dose Admin Heparin Sodium (Porcine) 5,000 unit 09/19/18 06:15 09/22/18 13:17 Heparin - SQ 5,000 unit TID EARNESTINE Administration Hydromorphone HCl 0.5 mg 09/20/18 14:00 09/22/18 14:13 Dilaudid Vial - IVPB 0.5 mg Q6H PRN Administration PAIN LEVEL 7 - 10 Lactated Ringer's 1,000 ml in 1,000 mls @ 75 mls/hr 09/22/18 11:09 09/22/18 14:12 Lactated Ringers Solution IV 75 mls/hr ASDIR EARNESTINE Administration Lisinopril 10 mg 09/22/18 14:15 Prinivil PO DAILY EARNESTINE Ondansetron HCl 4 mg 09/21/18 02:00 Zofran Injection IVPUSH Q4H PRN NAUSEA AND/OR VOMITING Pantoprazole Sodium 40 mg 09/20/18 10:00 09/22/18 09:35 Protonix Iv IVPUSH 40 mg DAILY EARNESTINE Administration ASSESSMENT AND PLAN: 73 year old female with HTN, presents with epigastric abdominal pain/nausea/ vomiting, started after dinner 09/18. 1. Severe Pancreatitis, likely sec to Gallstones. Leukocytosis improving. Afebrile. Lipase > 30,000 on admission, down to 308 AST 263 ---> 178 ---> 40 ---> 30 ALT 186 ---> 162 ---> 70 ---> [address] - findings consistent with acute pancreatitis without abscess or pseudocyst. Abdominal US - Gallstones without sonographic evidence of acute cholecystitis, fatty liver. Continue NPO, IV Hydration. Monitor electrolytes. Analgesia with Dilaudid. MRCP - Acute pancreatitis with extensive steven-pancreatic edema. Cholelithiasis with no evidence of choledocholithiasis or pancreatobiliary dilatation. GI and Surgery following. 2. HTN - normally on Lisinopril, will hold. 3. Mild desaturation in SpO2 09/20/18 with CXR showing congestive findings with bibasilar atelectasis with pleural fluid. LR rate decreased to 75ml/hr. DVT Px - Heparin SQ GI Px - Protonix IV
[2018-09-22] MEDS: LISINOPRIL 10 MG TABLET (FP) PO SCH (14:20)
[2018-09-22] MEDS ORDERED: LACTATED RINGERS SOLUTION 1,000 ML/1,000 ML INFUS.BAG IV SCH (15:11)
--- NOTE | 2018-09-22 15:30 | PN ---
Progress Note (short form) - Note Progress Note: Attending Surgeon Seen in f/u; c/o pain VSS AF abdo-soft; remains slightly tender WBC decreasing as well as amylase/lipase MRCP reviewed IMP: resolving gallstone pamcreatitis PLAN: Continue present tx.; tentatively for lap megha 09/26/18 pending on going continued clinical improvement. Wade Arcos MD FACS
[2018-09-23] MEDS: HYDROmorphone HCl 2 MG/ML VIAL IVPB PRN ×4 (00:26→23:17)
[2018-09-23] MEDS: HEPARIN NA (PORCINE) 5,000 UNITS/ML 1ML VIAL SQ SCH ×3 (05:36→21:11)
[2018-09-23 08:08] LABS: HEMATOCRIT 32.4 % (32.4-45.2); HEMOGLOBIN 11.2 GM/dL (10.7-15.3); MCH 31.2 pg (25.7-33.7); MCHC 34.6 g/dl (32.0-36.0); MEAN CELL VOLUME 90.2 fl (80-96); MEAN PLT VOLUME 8.7 fl (7.5-11.1); PLATELET COUNT 264 K/MM3 (134-434); RBC 3.59 M/mm3 (3.60-5.2); RDW 14.4 % (11.6-15.6); WHITE BLOOD COUNT 18.8 K/mm3 (4.0-10.0)
[2018-09-23 08:11] LABS: ALBUMIN 2.4 g/dl (3.4-5.0); ALK PHOS 73 U/L (45-117); ANION GAP 8 MMOL/L (8-16); BILIRUBIN,TOTAL 0.8 mg/dL (0.2-1); BLOOD UREA NITROGEN 18 mg/dL (7-18); CHLORIDE 102 mmol/L (98-107); CO2 28 mmol/L (21-32); CREATININE 0.6 mg/dL (0.55-1.3); GLUCOSE,RANDOM 61 mg/dL (74-106); MAGNESIUM 2.3 mg/dL (1.8-2.4); POTASSIUM 3.7 mmol/L (3.5-5.1); SGOT/AST 28 U/L (15-37); SGPT/ALT 30 U/L (13-61); SODIUM 139 mmol/L (136-145); TOT PROT 5.9 g/dl (6.4-8.2)
[2018-09-23] MEDS ORDERED: DEXTROSE 5%-LACTATED RINGERS 1,000 ML IV SCH ×2 (08:30→19:30)
--- NOTE | 2018-09-23 09:58 | PN ---
Progress Note (short form) - Note Progress Note: Pt with pain overnight and this am, medicated with IV dilaudid. No nausea or emesis. Vital Signs Period Temp Pulse Resp BP Sys/Contreras Pulse Ox Last 24 Hr 98.0 F-98.5 F 87-109 18-20 145-165/74-95 90 GEN: Alert, resting comfortabley/arousable ABD: soft, non-distedned, RUQ/epigastric pain with palpation. No diffuse guarding or rebound. CBC, BMP 09/23/18 06:30 09/23/18 06:30 Laboratory Tests 09/23/18 06:30 Total Bilirubin 0.8 AST 28 ALT 30 Alkaline Phosphatase 73 MRCP: no CBD stones, no collections, fluid surrounding the pancrease. A/P: 73 yo female with GS pancreatitis Recommend to continue npo/IV hydration Afebrile with leukycytosis Amylase/lipase values improved Will plan for lap megha this week on Saturday, if her symtoms and pancreatitis continue to improve D/w Dr. Arcos Problem List - Problems (1) Pancreatitis Code(s): K85.90 - ACUTE PANCREATITIS WITHOUT NECROSIS OR INFECTION, UNSP Qualifiers: Chronicity: acute
--- NOTE | 2018-09-23 10:47 | PN ---
Progress Note (short form) - Note Progress Note: Still with abdominal pain.Afebrile. No CP or SOB. Intake & Output 09/20/18 09/21/18 09/22/18 09/23/18 23:59 23:59 23:59 23:59 Intake Total 4460 1690 2200 Balance 4460 1690 2200 Last Vital Signs Temp Pulse Resp BP Pulse Ox 98.4 F 97 H 20 150/76 90 L 09/23/18 06:00 09/23/18 06:00 09/23/18 06:00 09/23/18 06:00 09/22/18 22:00 Active Medications Heparin Sodium (Porcine) (Heparin -) 5,000 unit SQ TID [facility] Last Admin: 09/23/18 05:36 Dose: 5,000 unit Hydromorphone HCl (Dilaudid Vial -) 0.5 mg IVPB Q6H PRN PRN Reason: PAIN LEVEL 7 - 10 Last Admin: 09/23/18 07:54 Dose: 0.5 mg Dextrose/Lactated Ringer's (D5-Lr -) 1,000 mls @ 125 mls/hr IV ASDIR [facility] Lisinopril (Prinivil) 10 mg PO DAILY [facility] Last Admin: 09/22/18 14:20 Dose: 10 mg Ondansetron HCl (Zofran Injection) 4 mg IVPUSH Q4H PRN PRN Reason: NAUSEA AND/OR VOMITING Last Admin: 09/22/18 23:08 Dose: 4 mg Pantoprazole Sodium (Protonix Iv) 40 mg IVPUSH DAILY [facility] Last Admin: 09/22/18 09:35 Dose: 40 mg General: Awake, alert, and oriented, in no acute distress Head: No signs of trauma Eyes: EOMI, sclera anicteric ENT: Dry mucus membranes Neck: Normal ROM, supple Lungs: Bibasilar crackles / rhonchi Cardio: Regular rhythm, S1 and S2 present Abdomen: Tender to palpation, Soft, (+) BS Extremities: (+) PP SKIN: Warm, Dry, normal turgor Neurologic: Non-focal Labs: Laboratory Results - last 24 hr 09/23/18 09/23/18 06:30 06:30 WBC 18.8 H RBC 3.59 L Hgb 11.2 Hct 32.4 MCV 90.2 MCH 31.2 MCHC 34.6 RDW 14.4 Plt Count 264 D MPV 8.7 Sodium 139 Potassium 3.7 Chloride 102 Carbon Dioxide 28 Anion Gap 8 BUN 18 Creatinine 0.6 Creat Clearance w eGFR > 60 Random Glucose 61 L Calcium 8.0 L Phosphorus 3.0 Magnesium 2.3 Total Bilirubin 0.8 AST 28 ALT 30 Alkaline Phosphatase 73 Total Protein 5.9 L Albumin 2.4 L Assessment/Plan Suspect Gallstone Pancreatitis with possible passage of the stone Currently improved and hemodynamically stable with no indication of systemic morbidity LL atelectasis due to splinting IVF: LR Remains off ABX O2 as needed Incentive Spirometry VTE prophylaxis For Lap Pam on Saturday Dr Stubbs
[2018-09-23] MEDS: PANTOPRAZOLE SODIUM 40 MG VIAL IVPUSH SCH (11:06)
[2018-09-23] MEDS: DEXTROSE 5%-LACTATED RINGERS 1,000 ML IV SCH ×2 (11:06→11:16)
[2018-09-23] MEDS: LISINOPRIL 10 MG TABLET (FP) PO SCH (11:06)
--- NOTE | 2018-09-23 14:29 | PN ---
Physical Exam: SUBJECTIVE: Patient seen and examined this AM. She states she is still having epigastric pain and states she is not currently hungry or thirsty. OBJECTIVE: Vital Signs Period Temp Pulse Resp BP Sys/Contreras Pulse Ox Last 24 Hr 98 F-98.5 F 96-109 18-20 150-165/76-95 90-92 GENERAL: A&O, mild distress HEAD: Normocephalic, atraumatic. EYES: no scleral icterus EARS, NOSE, THROAT: oropharynx clear without exudates. Moist mucous membranes. NECK: supple without lymphadenopathy LUNGS: decreased breath sounds at the bases HEART: Regular rate and rhythm, normal S1 and S2 without murmur ABDOMEN: Soft, tender to palpation in epigastric region, normoactive bowel sounds EXTREMITIES: 2+ pulses, warm, well-perfused. No peripheral edema. Laboratory Results - last 24 hr 09/23/18 09/23/18 06:30 06:30 WBC 18.8 H RBC 3.59 L Hgb 11.2 Hct 32.4 MCV 90.2 MCH 31.2 MCHC 34.6 RDW 14.4 Plt Count 264 D MPV 8.7 Sodium 139 Potassium 3.7 Chloride 102 Carbon Dioxide 28 Anion Gap 8 BUN 18 Creatinine 0.6 Creat Clearance w eGFR > 60 Random Glucose 61 L Calcium 8.0 L Phosphorus 3.0 Magnesium 2.3 Total Bilirubin 0.8 AST 28 ALT 30 Alkaline Phosphatase 73 C-Reactive Protein 25.8 H Total Protein 5.9 L Albumin 2.4 L Active Medications Generic Name Dose Route Start Last Admin Trade Name Freq PRN Reason Stop Dose Admin Heparin Sodium (Porcine) 5,000 unit 09/19/18 06:15 09/23/18 05:36 Heparin - SQ 5,000 unit TID EARNESTINE Administration Hydromorphone HCl 0.5 mg 09/20/18 14:00 09/23/18 07:54 Dilaudid Vial - IVPB 0.5 mg Q6H PRN Administration PAIN LEVEL 7 - 10 Dextrose/Lactated Ringer's 1,000 mls @ 125 mls/hr 09/23/18 08:30 09/23/18 11: 16 D5-Lr - IV 125 mls/hr ASDIR EARNESTINE Administration Lisinopril 10 mg 09/22/18 14:15 09/23/18 11:06 Prinivil PO 10 mg DAILY EARNESTINE Administration Ondansetron HCl 4 mg 09/21/18 02:00 09/22/18 23:08 Zofran Injection IVPUSH 4 mg Q4H PRN Administration NAUSEA AND/OR VOMITING Pantoprazole Sodium 40 mg 09/20/18 10:00 09/23/18 11:06 Protonix Iv IVPUSH 40 mg DAILY EARNESTINE Administration ASSESSMENT/PLAN: 73-year-old female with a past medical history of hypertension who comes into the emergency department complaining of a one-day history of epigastric pain, nausea and NBNB vomiting. Acute Pancreatitis, secondary to unknown cause -Lipase/Amylase too elevated to report on admission, resolved -Significant Epigastric pain -CT abdomen with pancreatic inflammation -GI consult appreciated -LR @ 75 cc/hr, monitor for fluid overload consider lasix if any signs of respiratory distress -Pain control with Dilauded 0.5 mg IV Q6 PRN -LFTs improved, can receive IV tylenol as needed for further pain control -NPO for now -per surgery pending plan for cholecystectomy, currently planning for saturday -Repeat CT scan with and without contrast, concerns for abscess or necrosis as symptoms not resolving HTN -Continue Lisinopril 10 mg DVT Prophylaxis -Heparin 5000 units SQ TID FEN -Fluids: LR @ 75 cc/hr -Electrolytes: No electrolyte abnormalities, BMP in AM -Nutrition: NPO Disposition Med/Surg Visit type - Emergency Visit Emergency Visit: Yes ED Registration Date: 09/19/18 Care time: The patient presented to the Emergency Department on the above date and was hospitalized for further evaluation of their emergent condition. - New Patient This patient is new to me today: No - Critical Care Critical Care patient: No
[2018-09-23 14:59] VITALS: BMI 28.3
--- NOTE | 2018-09-23 16:01 | PN ---
Teaching Attending Note Name of Resident: Christophe Dailey ATTENDING PHYSICIAN STATEMENT I saw and evaluated the patient. I reviewed the resident's note and discussed the case with the resident. I agree with the resident's findings and plan as documented. SUBJECTIVE:c/o epigastric pain. only slight improvement since yesterday. not hungry. denies Cp, SOB, fever, chills, N/V/C/D OBJECTIVE: Last Vital Signs Temp Pulse Resp BP Pulse Ox 98.7 F 105 H 18 156/86 92 L 09/23/18 14:33 09/23/18 14:33 09/23/18 14:33 09/23/18 14:33 09/23/18 09:00 General NAD CV S1 S2 + lungs decreased R base abdomen +epigastric tenderness no rebound or guarding. dull to percussion extremities no pedal edema ASSESSMENT AND PLAN: 73 year old female with HTN, presents with epigastric abdominal pain/nausea/ vomiting and found to have pancreatitis due to gallstones 1. Severe Pancreatitis- likely sec to Gallstones. concern for development of necrotizing pancreatitis given continues abdominal pain and uptrending leukocytosis. will get CT to further evaluate. cont NPO, IVF, pain control. will need cholecystectomy on this hospital stay. surgery and GI on board 2. HTN- remains above goal which could be from pain. cont home regimen for now. may need to increase if remains elevated 3. DVT ppx- hep sq
--- NOTE | 2018-09-23 16:06 | PN ---
GI Progress Note Subjective: No acute events Continued abdominal pain Per Hardik's nurse, fluid was decreased to 125cc/hr due to hypertension - Objective Vital Signs: Vital Signs Temperature 98.7 F 09/23/18 14:33 Pulse Rate 105 H 09/23/18 14:33 Respiratory Rate 18 09/23/18 14:33 Blood Pressure 156/86 09/23/18 14:33 O2 Sat by Pulse Oximetry (%) 92 L 09/23/18 09:00 Constitutional: Calm Eyes: No: Sclera Icterus Cardiovascular: Yes: Tachycardia Respiratory: Yes: Diminished, Rhonchi (left lung base) Gastrointestinal Inspection: No: Distention ...Auscultate: Yes: Normoactive Bowel Sounds ...Palpate: Yes: Tenderness (Marked TTP mid/upper abdomen. Somewhat improved from prior exam. No further voluntary guarding.) ...Percussion: No: Tympanitic Edema: No (No LE edema) Neurological: Yes: Alert Labs: CBC, BMP 09/23/18 06:30 09/23/18 06:30 INR, PTT INR 1.00 (0.83-1.09) 09/19/18 06:20 Problem List - Problems (1) Acute gallstone pancreatitis Assessment/Plan: Some improvement in abdominal pain complaints, however, still with significant tendeness on my exam Congestive changes on CXR noted as well as supplemental oxygen requirements. I suspect that her underlying disease process is contributing to this I would continue aggressive IV hydration as she can tolerate ie 200cc/hr. Consider transfer to ICU for closer monitoring of hemodynamics, I's and O's and cardiorespiratory status. NPO AM labs ordered Treatment of HTN per primary team Code(s): K85.10 - BILIARY ACUTE PANCREATITIS WITHOUT NECROSIS OR INFECTION
[2018-09-23] MEDS ORDERED: ACETAMINOPHEN 1000 MG/100 ML VIAL (NON FORMULARY) IVPB ONE (17:38)
--- NOTE | 2018-09-23 18:09 | PN ---
Progress Note (short form) - Note Progress Note: Pulm/CCM Patient seen and examined at bedside Went for CTAP Still having abdominal pain but patient states it is much better at this time temperature of 100.1 after CTAP NAD lying in bed Tachycardic Lungs with bibasilar crackles abdomen is soft tender to palpation in epigastrium no rigidity Patient is saturating 100% on room air at this time. She remains hemodynamically stable CTAP to r/o nectrotizing pancreatitis Patient with low grade fever can continue to mkonitor on floors for now If patient starts to decompensate (tachypneic or hypotensive) on the med/surg floor will transfer patient to ICU Will sign out to night ICU resident to follow up on patient overnight Low threshold to transfer to ICU Discussed with Dr. Stubbs
[2018-09-24] MEDS ORDERED: DEXTROSE 5%-LACTATED RINGERS 1,000 ML IV SCH (00:30)
[2018-09-24] MEDS: HYDROmorphone HCl 2 MG/ML VIAL IVPB PRN ×2 (04:19→17:56)
[2018-09-24] MEDS: HEPARIN NA (PORCINE) 5,000 UNITS/ML 1ML VIAL SQ SCH ×3 (05:43→22:00)
[2018-09-24 07:48] LABS: BASO % 0.1 % (0-2.0); EOS % 0.3 % (0-4.5); HEMOGLOBIN 11.2 GM/dL (10.7-15.3); LYMPH % 5.4 % (8-40); MCH 31.5 pg (25.7-33.7); MCHC 34.9 g/dl (32.0-36.0); MEAN CELL VOLUME 90.1 fl (80-96); MEAN PLT VOLUME 8.5 fl (7.5-11.1); NEUT % 87.2 % (42.8-82.8); PLATELET COUNT 259 K/MM3 (134-434); RBC 3.55 M/mm3 (3.60-5.2); RDW 14.4 % (11.6-15.6); WHITE BLOOD COUNT 19.2 K/mm3 (4.0-10.0)
[2018-09-24 08:53] LABS: ALBUMIN 2.1 g/dl (3.4-5.0); ALK PHOS 78 U/L (45-117); ANION GAP 7 MMOL/L (8-16); BILIRUBIN,TOTAL 0.6 mg/dL (0.2-1); BLOOD UREA NITROGEN 11 mg/dL (7-18); CALCIUM 7.8 mg/dL (8.5-10.1); CHLORIDE 101 mmol/L (98-107); CO2 32 mmol/L (21-32); CREATININE 0.6 mg/dL (0.55-1.3); GLUCOSE,RANDOM 116 mg/dL (74-106); POTASSIUM 3.2 mmol/L (3.5-5.1); SGOT/AST 22 U/L (15-37); SGPT/ALT 24 U/L (13-61); SODIUM 139 mmol/L (136-145); TOT PROT 5.5 g/dl (6.4-8.2)
--- NOTE | 2018-09-24 09:02 | PN ---
Progress Note (short form) - Note Progress Note: Pt seen and examined. Reports some improvement in abdominal pain. Had a fever overnight. Has been oob with assistance. Denies cp/sob, n/v/d. Vital Signs Temp 99.6 F 09/24/18 05:54 Pulse 117 H 09/24/18 05:54 Resp 20 09/24/18 05:54 BP 159/88 09/24/18 05:54 Pulse Ox 94 L 09/23/18 21:00 Intake & Output 09/23/18 09/23/18 09/24/18 11:59 23:59 11:59 Intake Total 1000 975 Balance 1000 975 Weight 150 lb Intake: IV 800 875 D5-Lr - 1,000 ml @ 125 875 mls/hr IV ASDIR EARNESTINE Rx#: [id number] D5-Lr - 1,000 ml @ 200 800 mls/hr IV ASDIR EARNESTINE Rx#: [id number] IVPB 200 100 Oral 0 0 Other: Voiding Method Toilet Toilet # Unmeasured Voids Void 2 1 Bowel Movement No No No Height 5 ft 1 in Body Mass Index (BMI) 28.3 CBC, BMP 09/24/18 06:30 09/24/18 06:30 Gen: awake, alert, nad, laying in bed Resp: unlabored Abdomen: soft, minimally distended, + ttp R&LUQ, no rebound or guarding, hypoactive bowel sounds A/P: 73 y/o F w/ PMHx htn, admitted 09/19 with epigastric pain, nausea/vomiting, found to have gallstone pancreatitis. Abdominal pain slightly improved. +low grade fever overnight (100.1) Leukocytosis trending up 19.2 from 18k yesterday -F/U ct abdo/pelvis, done last night for r/o necrotizing pancreatitis/abscess -Continue NPO/IVF -Trend labs (cbc, LFTS, amylase/lipase) -Possible cholecystectomy Saturday with Dr Arcos if stable/medically clear d/w attending Dr Arcos
[2018-09-24] MEDS: LISINOPRIL 10 MG TABLET (FP) PO SCH (09:19)
[2018-09-24] MEDS: KCL 10 MEQ IVPB 10 MEQ/100 ML INFUS.BAG IVPB SCH ×2 (09:19→15:59)
[2018-09-24] MEDS: PANTOPRAZOLE SODIUM 40 MG VIAL IVPUSH SCH (09:20)
[2018-09-24] MEDS ORDERED: ACETAMINOPHEN 1000 MG/100 ML VIAL (NON FORMULARY) IVPB ONE (09:30)
--- NOTE | 2018-09-24 10:42 | PN ---
Progress Note, Physician History of Present Illness: Pt seen/examined at bedside, sitting up at bedside, feels better overall, reports slight headache this am, states abdominal pain is improved. Denies nausea/vomiting, fever/chills. No appetite. CT yesterday without evidence of fluid collection or necrosis. Per nurse, received 1L fluids at 200cc/hr, then decreased to 125cc/hr overnight per primary team. - Current Medication List Current Medications: Active Medications Heparin Sodium (Porcine) (Heparin -) 5,000 unit SQ TID [facility] Last Admin: 09/24/18 05:43 Dose: 5,000 unit Hydromorphone HCl (Dilaudid Vial -) 0.5 mg IVPB Q6H PRN PRN Reason: PAIN LEVEL 7 - 10 Last Admin: 09/24/18 04:19 Dose: 0.5 mg Dextrose/Lactated Ringer's (D5-Lr -) 1,000 mls @ 125 mls/hr IV ASDIR [facility] Last Admin: 09/24/18 02:02 Dose: 125 mls/hr Potassium Chloride (Potassium Chloride 10 Meq Premix Ivpb -) 10 meq in 100 mls @ 100 mls/hr IVPB Q60M [facility] Stop: 09/24/18 12:29 Last Admin: 09/24/18 09:19 Dose: 100 mls/hr Lisinopril (Prinivil) 10 mg PO DAILY [facility] Last Admin: 09/24/18 09:19 Dose: 10 mg Ondansetron HCl (Zofran Injection) 4 mg IVPUSH Q4H PRN PRN Reason: NAUSEA AND/OR VOMITING Last Admin: 09/22/18 23:08 Dose: 4 mg Pantoprazole Sodium (Protonix Iv) 40 mg IVPUSH DAILY [facility] Last Admin: 09/24/18 09:20 Dose: 40 mg - Objective Vital Signs: Vital Signs Temperature 99.6 F 09/24/18 05:54 Pulse Rate 117 H 09/24/18 05:54 Respiratory Rate 20 09/24/18 05:54 Blood Pressure 159/88 09/24/18 05:54 O2 Sat by Pulse Oximetry (%) 94 L 09/23/18 21:00 Constitutional: Yes: Well Nourished, No Distress, Calm, Other (Appears well, comfortable) HENT: Yes: WNL, Atraumatic Cardiovascular: Yes: WNL, Regular Rate and Rhythm Respiratory: Yes: WNL, Regular, Other (Decreased A/E b/l at bases) Gastrointestinal: Yes: WNL, Normal Bowel Sounds, Soft, Other (Abd soft, mildly tender in epigastrium on palpation, no rebounding, guarding or rigidity) Labs: CBC, BMP 09/24/18 06:30 09/24/18 06:30 INR, PTT INR 1.00 (0.83-1.09) 09/19/18 06:20 Problem List - Problems (1) Acute gallstone pancreatitis Assessment/Plan: 73 yo female with acute pancreatitis, likely secondary to gallstones. Abdominal pain has markedly improved though with low grade fever and mild leucocytosis s/ p CT yesterday revealing changes consistent with acute pancreatitis, no obvious fluid collection or necrosis. 6mm hypodensity seen in pancreatic body ?cyst vs pseudocyst (though less likely). BUN, LFTs normal. -Continue supportive measures and aggressive IVF 200-250cc/hr as tolerated from a cardiopulmonary standpoint (was decreased back to 125cc/hr overnight) -- with low threshold for transfer to ICU -Keep npo for now -Closely monitor electrolytes -Surgery on board for cholecystectomy this hospitalization once clinically improved -Pending course, recommend follow up CT (pancreatic protocol) in 4 weeks to reassess for pseudocyst formation vs cystic lesion Discussed with medicine team Code(s): K85.10 - BILIARY ACUTE PANCREATITIS WITHOUT NECROSIS OR INFECTION
[2018-09-24 12:23] LABS: ANISOCYTOSIS 0; MACROCYTOSIS 0; PLATELET ESTIMATE NORMAL
--- NOTE | 2018-09-24 13:18 | PN ---
Teaching Attending Note Name of Resident: Christophe Dailey ATTENDING PHYSICIAN STATEMENT I saw and evaluated the patient. I reviewed the resident's note and discussed the case with the resident. I agree with the resident's findings and plan as documented. SUBJECTIVE:states pain is much improved today and only hurts on deep palpation. no hunger. denies Cp,SOB, fever, chills, N/V/C/D saturating 95% on RA OBJECTIVE: Last Vital Signs Temp Pulse Resp BP Pulse Ox 99.6 F 117 H 20 159/88 94 L 09/24/18 05:54 09/24/18 05:54 09/24/18 05:54 09/24/18 05:54 09/23/18 21:00 General NAD CV S1 S2 + lungs crackles B/L bases abdomen +epigastric tenderness no rebound or guarding. dull to percussion extremities no pedal edema ASSESSMENT AND PLAN: 73 year old female with HTN, presents with epigastric abdominal pain/nausea/ vomiting and found to have pancreatitis due to gallstones 1. Severe Pancreatitis- likely sec to Gallstones. had low grade temp and leukocytosis continues to worsen. CT done yesterday with no signs of necrosis. questionable psuedocyst. will cont with increased IVF with careful monitoring of respiratory status as pt is 3rd spacing with B/L effusions seen on CT. cont NPO, IVF and pain control.will need cholecystectomy on this hospital stay. surgery and GI on board. updated surgical team that pt will not be ready for surgery this saturday. 2. HTN- remains above goal. will increase lisinopril to 20mg. 3. Hypokalemia- Kcl IV 4. DVT ppx- hep sq
--- NOTE | 2018-09-24 13:41 | PN ---
Physical Exam: SUBJECTIVE: Patient seen and examined this AM. She states she is feeling better today. Still not feeling hungry or thirsty OBJECTIVE: Vital Signs Period Temp Pulse Resp BP Sys/Contreras Pulse Ox Last 24 Hr 98.7 F-100.1 F 95-117 18-20 150-159/86-88 94 GENERAL: A&O, mild distress HEAD: Normocephalic, atraumatic. EYES: no scleral icterus EARS, NOSE, THROAT: oropharynx clear without exudates. Moist mucous membranes. NECK: supple without lymphadenopathy LUNGS: decreased breath sounds at the bases HEART: Regular rate and rhythm, normal S1 and S2 without murmur ABDOMEN: Soft, tender to palpation in epigastric region improved from yesterday , normoactive bowel sounds EXTREMITIES: 2+ pulses, warm, well-perfused. No peripheral edema. Laboratory Results - last 24 hr 09/23/18 09/24/18 09/24/18 06:30 06:30 06:30 WBC 19.2 H RBC 3.55 L Hgb 11.2 Hct 32.0 L MCV 90.1 MCH 31.5 MCHC 34.9 RDW 14.4 Plt Count 259 MPV 8.5 Absolute Neuts (auto) 16.7 H Neutrophils % 87.2 H Neutrophils % (Manual) 88.9 H Band Neutrophils % 0.0 Lymphocytes % 5.4 L Lymphocytes % (Manual) 7.1 L D Monocytes % 7.0 Monocytes % (Manual) 3 L Eosinophils % 0.3 Eosinophils % (Manual) 0.0 Basophils % 0.1 Basophils % (Manual) 0.0 Myelocytes % (Man) 0 Promyelocytes % (Man) 0 Blast Cells % (Manual) 0 Nucleated RBC % 0 Metamyelocytes 0 Hypochromia 0 Platelet Estimate Normal Polychromasia 1+ Poikilocytosis 0 Anisocytosis 0 Microcytosis 0 Macrocytosis 0 Sodium 139 139 Potassium 3.7 3.2 L Chloride 102 101 Carbon Dioxide 28 32 Anion Gap 8 7 L BUN 18 11 Creatinine 0.6 0.6 Creat Clearance w eGFR > 60 > 60 Random Glucose 61 L 116 H Calcium 8.0 L 7.8 L Phosphorus 3.0 Magnesium 2.3 Total Bilirubin 0.8 0.6 AST 28 22 ALT 30 24 Alkaline Phosphatase 73 78 C-Reactive Protein 25.8 H 21.1 H Total Protein 5.9 L 5.5 L Albumin 2.4 L 2.1 L Active Medications Generic Name Dose Route Start Last Admin Trade Name Freq PRN Reason Stop Dose Admin Heparin Sodium (Porcine) 5,000 unit 09/19/18 06:15 09/24/18 05:43 Heparin - SQ 5,000 unit TID EARNESTINE Administration Hydromorphone HCl 0.5 mg 09/20/18 14:00 09/24/18 04:19 Dilaudid Vial - IVPB 0.5 mg Q6H PRN Administration PAIN LEVEL 7 - 10 Potassium Chloride 20 meq/ 1,000 mls @ 200 mls/hr 09/24/18 13:18 Dextrose/Lactated Ringer's IVPB Q5H EARNESTINE Lisinopril 10 mg 09/22/18 14:15 09/24/18 09:19 Prinivil PO 10 mg DAILY EARNESTINE Administration Ondansetron HCl 4 mg 09/21/18 02:00 09/22/18 23:08 Zofran Injection IVPUSH 4 mg Q4H PRN Administration NAUSEA AND/OR VOMITING Pantoprazole Sodium 40 mg 09/20/18 10:00 09/24/18 09:20 Protonix Iv IVPUSH 40 mg DAILY EARNESTINE Administration ASSESSMENT/PLAN: 73-year-old female with a past medical history of hypertension who comes into the emergency department complaining of a one-day history of epigastric pain, nausea and NBNB vomiting. Acute Pancreatitis, secondary to unknown cause -Lipase/Amylase too elevated to report on admission, resolved -Epigastric pain, improving -CT abdomen with pancreatic inflammation -GI consult appreciated -D5 LR + 20 mEq K+ @ 200 cc/hr, monitor for fluid overload consider lasix if any signs of respiratory distress -Pain control with Dilauded 0.5 mg IV Q6 PRN, pt still requiring overnight, though states pain is improving -LFTs improved, can receive IV tylenol as needed for further pain control and fever -NPO for now -per surgery pending plan for cholecystectomy, currently planning for saturday -Repeat CT scan with and without contrast without signs of abscess HTN -Continue Lisinopril 20 mg DVT Prophylaxis -Heparin 5000 units SQ TID FEN -Fluids: D5 LR + 20 mEq K+ @ 75 cc/hr -Electrolytes: No electrolyte abnormalities, BMP in AM -Nutrition: NPO Disposition Med/Surg Visit type - Emergency Visit Emergency Visit: Yes ED Registration Date: 09/19/18 Care time: The patient presented to the Emergency Department on the above date and was hospitalized for further evaluation of their emergent condition. - New Patient This patient is new to me today: No - Critical Care Critical Care patient: No
[2018-09-24] MEDS ORDERED: LISINOPRIL 20 MG TABLET (FP) PO SCH (13:42)
[2018-09-24] MEDS: POTASSIUM CHLORIDE 20 MEQ in DEXTROSE 5%-LACTATED RINGERS 990 ML IVPB SCH ×2 (16:15→21:59)
[2018-09-25] MEDS: HYDROmorphone HCl 2 MG/ML VIAL IVPB PRN ×3 (00:22→22:49)
[2018-09-25] MEDS: POTASSIUM CHLORIDE 20 MEQ in DEXTROSE 5%-LACTATED RINGERS 990 ML IVPB SCH ×2 (04:38→09:38)
[2018-09-25] MEDS: HEPARIN NA (PORCINE) 5,000 UNITS/ML 1ML VIAL SQ SCH ×2 (05:26→15:19)
[2018-09-25 07:23] LABS: HEMATOCRIT 33.2 % (32.4-45.2); HEMOGLOBIN 11.3 GM/dL (10.7-15.3); MCHC 34.2 g/dl (32.0-36.0); MEAN CELL VOLUME 90.9 fl (80-96); MEAN PLT VOLUME 7.9 fl (7.5-11.1); PLATELET COUNT 281 K/MM3 (134-434); RBC 3.65 M/mm3 (3.60-5.2); RDW 14.4 % (11.6-15.6); WHITE BLOOD COUNT 18.7 K/mm3 (4.0-10.0)
[2018-09-25] MEDS ORDERED: D5-LR+20 MEQ KCL - 20 MEQ/1,000 ML INFUS.BAG IV SCH (08:15)
[2018-09-25 08:31] LABS: ANION GAP 6 MMOL/L (8-16); BLOOD UREA NITROGEN 8 mg/dL (7-18); CALCIUM 8.4 mg/dL (8.5-10.1); CHLORIDE 103 mmol/L (98-107); CO2 32 mmol/L (21-32); CREATININE 0.6 mg/dL (0.55-1.3); GLUCOSE,RANDOM 111 mg/dL (74-106); PHOSPHOROUS 2.8 mg/dL (2.5-4.9); POTASSIUM 3.5 mmol/L (3.5-5.1); SODIUM 141 mmol/L (136-145)
--- NOTE | 2018-09-25 08:39 | PN ---
Progress Note (short form) - Note Progress Note: Pt seen and examined. Reports near resolution of abdominal pain. Had low grade fever overnight. Has been oob with assistance. Denies cp/sob, n/v/d. Vital Signs Temp 98.1 F 09/25/18 14:22 Pulse 103 H 09/25/18 14:23 Resp 20 09/25/18 14:23 BP 152/87 09/25/18 14:23 Pulse Ox 95 09/25/18 09:00 Intake & Output 09/24/18 09/25/18 09/25/18 23:59 11:59 23:59 Intake Total 2350 100 Balance 2350 100 Intake: IV 2150 D5-Lr - 1,000 ml @ 125 750 mls/hr IV ASDIR EARNESTINE Rx#: [id number] D5-Lr - 1,000 ml @ 200 800 mls/hr IV ASDIR EARNESTINE Rx#: [id number] D5-Lr - 1,000 ml @ 200 600 mls/hr IV ASDIR EARNESTINE Rx#: [id number] IVPB 200 100 Oral 0 Other: Voiding Method Toilet Toilet # Unmeasured Voids Void 3 Bowel Movement Yes: 1 CBC, BMP 09/25/18 06:45 09/25/18 06:45 Gen: awake, alert, nad, laying in bed Resp: unlabored Abdomen: soft, minimally distended, no ttp, no rebound or guarding, hypoactive bowel sounds A/P: 73 y/o F w/ PMHx htn, admitted 09/19 with epigastric pain, nausea/vomiting, found to have gallstone pancreatitis. Abdominal pain improved. +low grade fever overnight (99), remains tachy Leukocytosis trending down, 18.7K from 19.2 yesterday -May give clears, NPO after midnight -Trend labs (cbc, LFTS, amylase/lipase) -Plan for cholecystectomy tomorrow with Dr Arcos d/w attending Dr Arcos
[2018-09-25] MEDS: PANTOPRAZOLE SODIUM 40 MG VIAL IVPUSH SCH (09:30)
[2018-09-25] MEDS: ACETAMINOPHEN 325 MG TABLET (FP) PO PRN ×2 (09:30→16:58)
--- NOTE | 2018-09-25 10:30 | PN ---
GI Progress Note Subjective: States feeling much better and had a BM On increased rate of fluids: 200cc D5LR from 4pm yesterday - Objective Vital Signs: Vital Signs Temperature 98.4 F 09/25/18 05:57 Pulse Rate 119 H 09/25/18 05:57 Respiratory Rate 20 09/25/18 05:57 Blood Pressure 156/81 09/25/18 05:57 O2 Sat by Pulse Oximetry (%) 95 09/24/18 21:00 Constitutional: Calm Eyes: No: Sclera Icterus Cardiovascular: Yes: Tachycardia Respiratory: Yes: Rhonchi (fine crackles bilaterally), Wheezes ...Auscultate: Yes: Normoactive Bowel Sounds ...Palpate: Yes: Tenderness (mild TTP mid / upper abdomen, no guarding/rebound.) ...Percussion: Yes: Tympanitic Edema: No (No LE edema) Neurological: Yes: Alert Labs: CBC, BMP 09/25/18 06:45 09/25/18 06:45 INR, PTT INR 1.00 (0.83-1.09) 09/19/18 06:20 Problem List - Problems (1) Acute gallstone pancreatitis Assessment/Plan: Clinically much improved today from prior examinations. Suspected ileus on exam as well. Decreasing IV fluids to 150cc/hr If continued improevement, Advance diet to clears in AM and continue to decrease IV fluids Encourage ambulation AM labs Strict I/O's, daily weights Code(s): K85.10 - BILIARY ACUTE PANCREATITIS WITHOUT NECROSIS OR INFECTION
--- NOTE | 2018-09-25 10:42 | PN ---
Progress Note (short form) - Note Progress Note: Feels better today. Less abdominal pain. No CP or SOB. Remains afebrile. Intake & Output 09/22/18 09/23/18 09/24/18 09/25/18 23:59 23:59 23:59 23:59 Intake Total 2200 1000 3325 100 Balance 2200 1000 3325 100 Weight 150 lb Last Vital Signs Temp Pulse Resp BP Pulse Ox 98.4 F 119 H 20 156/81 95 09/25/18 05:57 09/25/18 05:57 09/25/18 05:57 09/25/18 05:57 09/24/18 21:00 Active Medications Acetaminophen (Tylenol -) 650 mg PO Q6H PRN PRN Reason: PAIN OR FEVER Last Admin: 09/25/18 09:30 Dose: 650 mg Heparin Sodium (Porcine) (Heparin -) 5,000 unit SQ TID [facility] Last Admin: 09/25/18 05:26 Dose: 5,000 unit Hydromorphone HCl (Dilaudid Vial -) 0.5 mg IVPB Q6H PRN PRN Reason: PAIN LEVEL 7 - 10 Last Admin: 09/25/18 06:21 Dose: 0.5 mg Dextrose/Lactated Ringer's (D5-Lr+20 Meq Kcl -) 20 meq in 1,000 mls @ 150 mls/ hr IV Q5H [facility] Lisinopril (Prinivil) 20 mg PO DAILY [facility] Last Admin: 09/25/18 09:30 Dose: 20 mg Ondansetron HCl (Zofran Injection) 4 mg IVPUSH Q4H PRN PRN Reason: NAUSEA AND/OR VOMITING Last Admin: 09/22/18 23:08 Dose: 4 mg Pantoprazole Sodium (Protonix Iv) 40 mg IVPUSH DAILY [facility] Last Admin: 09/25/18 09:30 Dose: 40 mg General: Awake, alert, and oriented, in no acute distress Head: No signs of trauma Eyes: EOMI, sclera anicteric ENT: Dry mucus membranes Neck: Normal ROM, supple Lungs: Less bibasilar rhonchi Cardio: Regular rhythm, S1 and S2 present Abdomen: Less tenderness, Soft, (+) BS Extremities: (+) PP SKIN: Warm, Dry, normal turgor Neurologic: Non-focal Labs: Laboratory Results - last 24 hr 09/24/18 09/25/18 09/25/18 06:30 06:45 06:45 WBC 18.7 H RBC 3.65 Hgb 11.3 Hct 33.2 MCV 90.9 MCH 31.0 MCHC 34.2 RDW 14.4 Plt Count 281 MPV 7.9 Neutrophils % (Manual) 88.9 H Band Neutrophils % 0.0 Lymphocytes % (Manual) 7.1 L D Monocytes % (Manual) 3 L Eosinophils % (Manual) 0.0 Basophils % (Manual) 0.0 Myelocytes % (Man) 0 Promyelocytes % (Man) 0 Blast Cells % (Manual) 0 Metamyelocytes 0 Hypochromia 0 Platelet Estimate Normal Polychromasia 1+ Poikilocytosis 0 Anisocytosis 0 Microcytosis 0 Macrocytosis 0 Sodium 141 Potassium 3.5 Chloride 103 Carbon Dioxide 32 Anion Gap 6 L BUN 8 Creatinine 0.6 Creat Clearance w eGFR > 60 Random Glucose 111 H Calcium 8.4 L Phosphorus 2.8 Magnesium 2.0 C-Reactive Protein 17.7 H Assessment/Plan Suspect Gallstone Pancreatitis with possible passage of the stone Currently improved and hemodynamically stable with no indication of systemic morbidity LL atelectasis due to splinting IVF: LR Remains off ABX O2 as needed Incentive Spirometry VTE prophylaxis For Lap Pam tomorrow Dr Stubbs
--- NOTE | 2018-09-25 11:03 | PN ---
Physical Exam: SUBJECTIVE: Patient seen and examined this AM. She states she is still having her headache but her abdominal pain is improving some. States she is not hungry though does endorse wanting fluids and fruit. OBJECTIVE: Vital Signs Period Temp Pulse Resp BP Sys/Contreras Pulse Ox Last 24 Hr 98.1 F-99.9 F 96-121 18-20 142-179/79-90 95 GENERAL: A&O, mild distress HEAD: Normocephalic, atraumatic. EYES: no scleral icterus EARS, NOSE, THROAT: oropharynx clear without exudates. Moist mucous membranes. NECK: supple without lymphadenopathy LUNGS: decreased breath sounds at the bases HEART: Regular rate and rhythm, normal S1 and S2 without murmur ABDOMEN: Soft, tender to palpation in epigastric region improved from yesterday , normoactive bowel sounds EXTREMITIES: 2+ pulses, warm, well-perfused. No peripheral edema. Laboratory Results - last 24 hr 09/24/18 09/25/18 09/25/18 06:30 06:45 06:45 WBC 18.7 H RBC 3.65 Hgb 11.3 Hct 33.2 MCV 90.9 MCH 31.0 MCHC 34.2 RDW 14.4 Plt Count 281 MPV 7.9 Neutrophils % (Manual) 88.9 H Band Neutrophils % 0.0 Lymphocytes % (Manual) 7.1 L D Monocytes % (Manual) 3 L Eosinophils % (Manual) 0.0 Basophils % (Manual) 0.0 Myelocytes % (Man) 0 Promyelocytes % (Man) 0 Blast Cells % (Manual) 0 Metamyelocytes 0 Hypochromia 0 Platelet Estimate Normal Polychromasia 1+ Poikilocytosis 0 Anisocytosis 0 Microcytosis 0 Macrocytosis 0 Sodium 141 Potassium 3.5 Chloride 103 Carbon Dioxide 32 Anion Gap 6 L BUN 8 Creatinine 0.6 Creat Clearance w eGFR > 60 Random Glucose 111 H Calcium 8.4 L Phosphorus 2.8 Magnesium 2.0 C-Reactive Protein 17.7 H Active Medications Generic Name Dose Route Start Last Admin Trade Name Freq PRN Reason Stop Dose Admin Acetaminophen 650 mg 09/25/18 09:10 09/25/18 09:30 Tylenol - PO 650 mg Q6H PRN Administration PAIN OR FEVER Heparin Sodium (Porcine) 5,000 unit 09/19/18 06:15 09/25/18 05:26 Heparin - SQ 5,000 unit TID EARNESTINE Administration Hydromorphone HCl 0.5 mg 09/20/18 14:00 09/25/18 06:21 Dilaudid Vial - IVPB 0.5 mg Q6H PRN Administration PAIN LEVEL 7 - 10 Dextrose/Lactated Ringer's 20 meq in 1,000 mls @ 150 mls/hr 09/25/18 10:31 D5-Lr+20 Meq Kcl - IV Q5H EARNESTINE Lisinopril 20 mg 09/24/18 13:42 09/25/18 09:30 Prinivil PO 20 mg DAILY EARNESTINE Administration Ondansetron HCl 4 mg 09/21/18 02:00 09/22/18 23:08 Zofran Injection IVPUSH 4 mg Q4H PRN Administration NAUSEA AND/OR VOMITING Pantoprazole Sodium 40 mg 09/20/18 10:00 09/25/18 09:30 Protonix Iv IVPUSH 40 mg DAILY EARNESTINE Administration ASSESSMENT/PLAN: 73-year-old female with a past medical history of hypertension who comes into the emergency department complaining of a one-day history of epigastric pain, nausea and NBNB vomiting. Acute Pancreatitis, likely secondary gallstones -Lipase/Amylase too elevated to report on admission, resolved -Epigastric pain, improving -CT abdomen with pancreatic inflammation -GI consult appreciated -D5 LR + 20 mEq K+ @ 150 cc/hr as per GI -Pain control with Dilauded 0.5 mg IV Q6 PRN, pt still requiring overnight, though states pain is improving -LFTs improved, can receive IV tylenol as needed for further pain control and fever -NPO for now, consider clears this afternoon if continued improvement or in AM -per surgery pending plan for cholecystectomy, currently planning for Tomorrow, though possibly Saturday -Repeat CT scan with and without contrast without signs of abscess HTN -Continue Lisinopril 20 mg today and monitor for b.p improvement DVT Prophylaxis -Heparin 5000 units SQ TID FEN -Fluids: D5 LR + 20 mEq K+ @ 150 cc/hr -Electrolytes: No electrolyte abnormalities, BMP in AM -Nutrition: NPO Disposition Med/Surg Visit type - Emergency Visit Emergency Visit: Yes ED Registration Date: 09/19/18 Care time: The patient presented to the Emergency Department on the above date and was hospitalized for further evaluation of their emergent condition. - New Patient This patient is new to me today: No - Critical Care Critical Care patient: No
--- NOTE | 2018-09-25 11:17 | PN ---
Teaching Attending Note Name of Resident: Christophe Dailey ATTENDING PHYSICIAN STATEMENT I saw and evaluated the patient. I reviewed the resident's note and discussed the case with the resident. I agree with the resident's findings and plan as documented. SUBJECTIVE:states pain is much better today. requesting to eat and drink. denies CP, SOB, fever, chillls, N/V/C/D OBJECTIVE: Last Vital Signs Temp Pulse Resp BP Pulse Ox 98.4 F 119 H 20 156/81 95 09/25/18 05:57 09/25/18 05:57 09/25/18 05:57 09/25/18 05:57 09/24/18 21:00 General NAD CV S1 S2 + lungs minimal crackles L base abdomen +epigastric tenderness no rebound or guarding. dull to percussion extremities no pedal edema ASSESSMENT AND PLAN: 73 year old female with HTN, presents with epigastric abdominal pain/nausea/ vomiting and found to have pancreatitis due to gallstones 1. Severe Pancreatitis- likely sec to Gallstones. afebrile but remains tachycardic. will wait till later today prior to advancing diet. will d/w surgeon if wants to do lap cholecystectomy tomorrow vs waiting. reduce IVF to prevent volume overload. 2. tachycardia- has persisted despite clinical improvement. check ekg 3. HTN- remains above goal. will increase lisinopril to 20mg. 4. Hypokalemia- Kcl IV 5. DVT ppx- hep sq
[2018-09-25] MEDS: D5-LR+20 MEQ KCL - 20 MEQ/1,000 ML INFUS.BAG IV SCH ×3 (11:49→21:45)
--- NOTE | 2018-09-25 16:42 | EKG ---
Test Reason : Blood Pressure : / mmHG Vent. Rate : 102 BPM Atrial Rate : 102 BPM P-R Int : 128 ms QRS Dur : 082 ms QT Int : 346 ms P-R-T Axes : 062 040 020 degrees QTc Int : 450 ms SINUS TACHYCARDIA T WAVE ABNORMALITY, CONSIDER ANTERIOR ISCHEMIA ABNORMAL ECG WHEN COMPARED WITH ECG OF 19-SEP-2018 02:56, NO SIGNIFICANT CHANGE WAS FOUND Confirmed by JOSE HOLBROOK MD ([id number]) on 09/25/2018 4:42:02 PM Referred By: Confirmed By:JOSE HOLBROOK MD
[2018-09-26] MEDS: D5-LR+20 MEQ KCL - 20 MEQ/1,000 ML INFUS.BAG IV SCH (02:50)
[2018-09-26] MEDS: HYDROmorphone HCl 2 MG/ML VIAL IVPB PRN (04:32)
--- NOTE | 2018-09-26 07:13 | PN ---
Physical Exam: SUBJECTIVE: Patient down for OR on initial attempt to evaluate this AM. Evaluated post op, resting comfortably in PACU OBJECTIVE: Vital Signs Period Temp Pulse Resp BP Sys/Contreras Pulse Ox Last 24 Hr 98 F-99.5 F 101-118 18-20 130-182/72-99 95-98 GENERAL: A&O, mild distress HEAD: Normocephalic, atraumatic. EYES: no scleral icterus EARS, NOSE, THROAT: oropharynx clear without exudates. Moist mucous membranes. NECK: supple without lymphadenopathy LUNGS: decreased breath sounds at the bases HEART: Regular rate and rhythm, normal S1 and S2 without murmur ABDOMEN: Soft, tender to palpation post op, normoactive bowel sounds EXTREMITIES: warm, well-perfused. No peripheral edema. Laboratory Results - last 24 hr 09/25/18 09/25/18 06:45 06:45 WBC 18.7 H RBC 3.65 Hgb 11.3 Hct 33.2 MCV 90.9 MCH 31.0 MCHC 34.2 RDW 14.4 Plt Count 281 MPV 7.9 Sodium 141 Potassium 3.5 Chloride 103 Carbon Dioxide 32 Anion Gap 6 L BUN 8 Creatinine 0.6 Creat Clearance w eGFR > 60 Random Glucose 111 H Calcium 8.4 L Phosphorus 2.8 Magnesium 2.0 C-Reactive Protein 17.7 H Active Medications Generic Name Dose Route Start Last Admin Trade Name Freq PRN Reason Stop Dose Admin Acetaminophen 650 mg 09/25/18 09:10 09/25/18 16:58 Tylenol - PO 650 mg Q6H PRN Administration PAIN OR FEVER Hydromorphone HCl 0.5 mg 09/20/18 14:00 09/26/18 04:32 Dilaudid Vial - IVPB 0.5 mg Q6H PRN Administration PAIN LEVEL 7 - 10 Dextrose/Lactated Ringer's 20 meq in 1,000 mls @ 150 mls/hr 09/25/18 10:31 02:50 D5-Lr+20 Meq Kcl - IV 150 mls/hr Q5H EARNESTINE Administration Lisinopril 20 mg 09/24/18 13:42 09/25/18 09:30 Prinivil PO 20 mg DAILY EARNESTINE Administration Ondansetron HCl 4 mg 09/21/18 02:00 09/22/18 23:08 Zofran Injection IVPUSH 4 mg Q4H PRN Administration NAUSEA AND/OR VOMITING Pantoprazole Sodium 40 mg 09/20/18 10:00 09/25/18 09:30 Protonix Iv IVPUSH 40 mg DAILY EAR[facility]STINE Administration ASSESSMENT/PLAN: 73-year-old female with a past medical history of hypertension who comes into the emergency department complaining of a one-day history of epigastric pain, nausea and NBNB vomiting. Acute Pancreatitis, likely secondary gallstones -Lipase/Amylase too elevated to report on admission, resolved -Epigastric pain, improving -CT abdomen with pancreatic inflammation -Repeat CT scan with and without contrast without signs of abscess -GI consult appreciated -D5 LR + 20 mEq K+ @ 100 cc/hr post op -Pain control with Dilauded 0.5 mg IV Q6 PRN, improving -LFTs improved, can receive IV tylenol as needed for further pain control and fever -clears post op, advance as tolerated -Lap megha today HTN -Continue Lisinopril 20 mg today and monitor for b.p improvement -Will monitor post-op once fluids decreased/dc and will adjust medications as needed DVT Prophylaxis -Heparin 5000 units SQ TID, held for OR, restart post op FEN -Fluids: Decrease to D5 LR + 20 mEq K+ @ 100 cc/hr post op and dc if tolerating diet -Electrolytes: HypoK, repleting in fluids, BMP in AM -Nutrition: Clears following surgery, advance as tolerated Disposition Med/Surg Visit type - Emergency Visit Emergency Visit: Yes ED Registration Date: 09/19/18 Care time: The patient presented to the Emergency Department on the above date and was hospitalized for further evaluation of their emergent condition. - New Patient This patient is new to me today: No - Critical Care Critical Care patient: No
[2018-09-26 07:44] LABS: BASO % 0.2 % (0-2.0); EOS % 1.5 % (0-4.5); HEMATOCRIT 30.6 % (32.4-45.2); HEMOGLOBIN 10.3 GM/dL (10.7-15.3); MCH 30.5 pg (25.7-33.7); MCHC 33.7 g/dl (32.0-36.0); MEAN CELL VOLUME 90.5 fl (80-96); MEAN PLT VOLUME 7.4 fl (7.5-11.1); MONO % 7.4 % (3.8-10.2); NEUT % 82.9 % (42.8-82.8); PLATELET COUNT 311 K/MM3 (134-434); RBC 3.39 M/mm3 (3.60-5.2); RDW 14.8 % (11.6-15.6); WHITE BLOOD COUNT 16.6 K/mm3 (4.0-10.0)
[2018-09-26] MEDS ORDERED: BUPIVACAINE HCL/PF 0.5% (5MG/ML) 10 ML VIAL ONE (07:54)
[2018-09-26 07:58] LABS: INR 1.24 (0.83-1.09); PROTHROMBIN TIME (PATIENT) 14.7 SEC (9.7-13.0)
[2018-09-26 08:01] LABS: ACTIVATED PTT 30.1 SECONDS (25.2-36.5)
[2018-09-26 08:22] LABS: ALBUMIN 2.3 g/dl (3.4-5.0); ALK PHOS 97 U/L (45-117); ANION GAP 5 MMOL/L (8-16); BILIRUBIN,TOTAL 0.4 mg/dL (0.2-1); BLOOD UREA NITROGEN 7 mg/dL (7-18); CALCIUM 8.5 mg/dL (8.5-10.1); CHLORIDE 104 mmol/L (98-107); CO2 32 mmol/L (21-32); CREATININE 0.7 mg/dL (0.55-1.3); GLUCOSE,RANDOM 115 mg/dL (74-106); MAGNESIUM 1.9 mg/dL (1.8-2.4); PHOSPHOROUS 3.1 mg/dL (2.5-4.9); POTASSIUM 3.8 mmol/L (3.5-5.1); SGOT/AST 27 U/L (15-37); SGPT/ALT 32 U/L (13-61); SODIUM 141 mmol/L (136-145); TOT PROT 5.8 g/dl (6.4-8.2)
[2018-09-26] MEDS ORDERED: PROPOFOL 20 ML ONE ×2 (08:50→08:51)
[2018-09-26] MEDS ORDERED: LIDOCAINE HCL/PF 2% SDV 5ML VIAL ONE (08:50)
[2018-09-26] MEDS ORDERED: MIDAZOLAM HCL 2 MG/2 ML SINGLE DOSE VIAL ONE (08:50)
[2018-09-26] MEDS ORDERED: ROCURONIUM BROMIDE 50 MG/5 ML VIAL ONE (08:51)
[2018-09-26] MEDS ORDERED: METOPROLOL TARTRATE 5 MG/5 ML VIAL ONE (09:20)
[2018-09-26] MEDS ORDERED: GLYCOPYRROLATE 0.2 MG/1 ML VIAL ONE (09:49)
[2018-09-26] MEDS ORDERED: NEOSTIGMINE METHYLSULFATE 0.5 MG/ML - 10 ML MDV ONE (09:49)
[2018-09-26] MEDS ORDERED: BUPIVACAINE HCL/PF 0.5% (5MG/ML) 10 ML VIAL IJ ONE (10:23)
--- NOTE | 2018-09-26 10:42 | OP ---
Operative Note - Note: Operative Date: 09/26/18 Pre-Operative Diagnosis: gallstone pancreatitis/cholelithiasis/cholecystitis Operation: lap megha and peritoneal bx. Findings: distended gallbladder w/stones and edema of gallbladder; # peritoneal wall implants; ? saponification and liver adhesions Surgeon: Wade Arcos Syrup Blender: Samantha Umaña Anesthesiologist/[employer] ARCHITECT: Marie Baptiste Anesthesia: General Specimens Removed: gallbladder and contents and peritoneal bx.'s Estimated Blood Loss (mls): 25
[2018-09-26] MEDS ORDERED: SODIUM CHLORIDE 1,000 ML IV SCH (11:00)
--- NOTE | 2018-09-26 11:01 | SURG ---
Surgery Visual Merchandising Specialist Note Visual Merchandising Specialist: Samantha Umaña PA-C Date of Service: 09/26/18 Diagnosis: gallstone pancreatitis/cholelithiasis/cholecystitis Procedure: lap megha and peritoneal bx I was present for the entirety of the operative procedure. For further detail, please refer to operative report. Visit type - Case Type Case Type: ED Admission - Emergency Emergency Visit: Yes ED Registration Date: 09/19/18 Care time: The patient presented to the Emergency Department on the above date and was hospitalized for further evaluation of their emergent condition. - New patient This patient is new to me today: No
--- NOTE | 2018-09-26 11:06 | PN ---
Teaching Attending Note Name of Resident: Christophe Dailey ATTENDING PHYSICIAN STATEMENT I reviewed the resident's note and discussed the case with the resident. I agree with the resident's findings and plan as documented. SUBJECTIVE:pt was in OR when i went to evaluate patient. as per RN tolerated clears last night OBJECTIVE: Last Vital Signs Temp Pulse Resp BP Pulse Ox 99.2 F 114 H 18 154/84 98 09/26/18 06:00 09/26/18 06:00 09/26/18 06:00 09/26/18 06:00 09/25/18 21:00 ASSESSMENT AND PLAN: 73 year old female with HTN, presents with epigastric abdominal pain/nausea/ vomiting and found to have pancreatitis due to gallstones 1. Severe Pancreatitis- likely sec to Gallstones. tolerated liquid diet. currently in OR for laprascopic cholecystectomy. advance diet as toelratd after diet. will d/c IVF once tolerating. GI and surgery on board 2. tachycardia- sinus tachycardia. no intervention at this time 3. HTN- remains above goal. some also due to high IVF. will monitor and start 2nd agent if persists 4. Hypokalemia- Kcl IV 5. DVT ppx- hep sq
[2018-09-26] MEDS ORDERED: ACETAMINOPHEN INJECTION 100 ML IVPB ONE (11:24)
[2018-09-26] MEDS: ACETAMINOPHEN 1000 MG/100 ML VIAL (NON FORMULARY) IVPB PRN (11:59)
[2018-09-26] MEDS ORDERED: ONDANSETRON 4 MG/2 ML VIAL IVPUSH PRN (12:53)
--- NOTE | 2018-09-26 14:12 | PN ---
GI Progress Note Subjective: S/P Lap Pam with op report reviewed Patient initially found sleeping peacefully in no distress States overall abdominal pain improved - Objective Vital Signs: Vital Signs Temperature 98.2 F 09/26/18 12:50 Pulse Rate 103 H 09/26/18 12:50 Respiratory Rate 09/26/18 12:50 Blood Pressure 114/64 09/26/18 12:50 O2 Sat by Pulse Oximetry (%) 97 09/26/18 12:55 Constitutional: Calm Eyes: No: Sclera Icterus Cardiovascular: Yes: Tachycardia Respiratory: Yes: Diminished (at bases with poor insp effort) Gastrointestinal Inspection: Yes: Scars (dressed trocar sites x 4). No: Distention ...Auscultate: Yes: Normoactive Bowel Sounds ...Palpate: Yes: Tenderness (mild tenderness @ trochar sites) ...Percussion: No: Tympanitic Edema: No (No LE edema) Neurological: Yes: Alert Labs: CBC, BMP 09/26/18 07:10 09/26/18 07:10 INR, PTT INR 1.24 (0.83-1.09) H 09/26/18 07:10 Hepatic Panel Total Bilirubin 0.4 mg/dL (0.2-1) 09/26/18 07:10 Direct Bilirubin 0.2 mg/dL (0.0-0.2) 09/20/18 07:15 AST 27 U/L (15-37) 09/26/18 07:10 ALT 32 U/L (13-61) 09/26/18 07:10 Alkaline Phosphatase 97 U/L (45-117) 09/26/18 07:10 Albumin 2.3 g/dl (3.4-5.0) L 09/26/18 07:10 Problem List - Problems (1) Acute gallstone pancreatitis Assessment/Plan: Clinically improved and now s/p Lap Pam Continue supportive measures and post op care per surgery If OK with surgery, advance diet in AM to clears, then full liquids as tolerated AM labs Code(s): K85.10 - BILIARY ACUTE PANCREATITIS WITHOUT NECROSIS OR INFECTION
[2018-09-26] MEDS: ACETAMINOPHEN 325 MG TABLET (FP) PO PRN (23:23)
[2018-09-26] MEDS: HEPARIN NA (PORCINE) 5,000 UNITS/ML 1ML VIAL SQ SCH (23:23)
[2018-09-27] MEDS: ACETAMINOPHEN 1000 MG/100 ML VIAL (NON FORMULARY) IVPB PRN (01:44)
--- NOTE | 2018-09-27 08:21 | PN ---
Progress Note (short form) - Note Progress Note: c/o pain over surgical sites. denies Cp, SOB,f ever, chills, N/V/C/D. tolerated liquids last night. no BM or flatus Current Medications Generic Name Dose Route Start Last Admin Trade Name Freq PRN Reason Stop Dose Admin Acetaminophen 1,000 mg 09/26/18 10:56 09/27/18 01:44 Ofirmev Injection - IVPB 1,000 mg Q6H PRN Administration MODERATE PAIN Acetaminophen 650 mg 09/26/18 12:53 09/26/18 23:23 Tylenol - PO 650 mg Q6H PRN Administration PAIN OR FEVER Heparin Sodium (Porcine) 5,000 unit 09/26/18 22:00 09/26/18 23:23 Heparin - SQ 5,000 unit BID EARNESTINE Administration Hydromorphone HCl 0.5 mg 09/26/18 12:53 Dilaudid Vial - IVPB Q6H PRN PAIN LEVEL 7 - 10 Lisinopril 20 mg 09/27/18 10:00 Prinivil PO DAILY EARNESTINE Ondansetron HCl 4 mg 09/26/18 12:53 Zofran Injection IVPUSH Q4H PRN NAUSEA AND/OR VOMITING Pantoprazole Sodium 40 mg 09/27/18 10:00 Protonix Iv IVPUSH DAILY [facility] Last Vital Signs Temp Pulse Resp BP Pulse Ox 98.1 F 92 H 18 149/77 93 L 09/27/18 05:47 09/27/18 05:47 09/27/18 05:47 09/27/18 05:47 09/26/18 21:00 General NAD CV S1 S2 + Lungs CTA B/L no wheezing/rales/rhonchi ABdomen soft tender surrounding surgical bandages. C/D/I +BS Extremities no edema CBCD WBC 15.6 K/mm3 (4.0-10.0) H 09/27/18 06:00 RBC 3.36 M/mm3 (3.60-5.2) L 09/27/18 06:00 Hgb 10.4 GM/dL (10.7-15.3) L 09/27/18 06:00 Hct 30.7 % (32.4-45.2) L 09/27/18 06:00 MCV 91.4 fl (80-96) 09/27/18 06:00 MCHC 33.8 g/dl (32.0-36.0) 09/27/18 06:00 RDW 14.7 % (11.6-15.6) 09/27/18 06:00 Plt Count 348 K/MM3 (134-434) 09/27/18 06:00 MPV 8.1 fl (7.5-11.1) 09/27/18 06:00 CMP Sodium 143 mmol/L (136-145) 09/27/18 06:00 Potassium 3.8 mmol/L (3.5-5.1) 09/27/18 06:00 Chloride 104 mmol/L (98-107) 09/27/18 06:00 Carbon Dioxide 32 mmol/L (21-32) 09/27/18 06:00 Anion Gap 7 MMOL/L (8-16) L 09/27/18 06:00 BUN 9 mg/dL (7-18) 09/27/18 06:00 Creatinine 0.7 mg/dL (0.55-1.3) 09/27/18 06:00 Creat Clearance w eGFR > 60 (>60) 09/27/18 06:00 Calcium 8.3 mg/dL (8.5-10.1) L 09/27/18 06:00 Total Bilirubin 1.0 mg/dL (0.2-1) 09/27/18 06:00 AST 112 U/L (15-37) H 09/27/18 06:00 ALT 101 U/L (13-61) H 09/27/18 06:00 Alkaline Phosphatase 190 U/L (45-117) H 09/27/18 06:00 Total Protein 5.5 g/dl (6.4-8.2) L 09/27/18 06:00 Albumin 2.2 g/dl (3.4-5.0) L 09/27/18 06:00 Assessment and PLan 73 year old female with HTN, presents with epigastric abdominal pain/nausea/ vomiting and found to have pancreatitis due to gallstones 1. Severe Pancreatitis- likely sec to Gallstones. s/p laprascopic cholecystectomy 09/26. tolerated well. tolerating diet. will place on full liquids and then reqgular for dinner if tolerates. cont low dose IVF till eating well. GI and surgery on board 2. transaminitis- ?anesthesia or hypoperfusion. will trend. 3. tachycardia- sinus tachycardia. no intervention at this time 4. HTN-improved. cont current management. 5. Hypokalemia- resolved 6. DVT ppx- hep sq 7. anticipate d/c in next 24H Visit type - Emergency Visit Emergency Visit: Yes ED Registration Date: 09/19/18 Care time: The patient presented to the Emergency Department on the above date and was hospitalized for further evaluation of their emergent condition. - New Patient This patient is new to me today: No - Critical Care Critical Care patient: No - Discharge Referral Referred to [facility] Med P.C.: No
[2018-09-27 08:22] LABS: HEMATOCRIT 30.7 % (32.4-45.2); HEMOGLOBIN 10.4 GM/dL (10.7-15.3); MCH 30.9 pg (25.7-33.7); MCHC 33.8 g/dl (32.0-36.0); MEAN CELL VOLUME 91.4 fl (80-96); MEAN PLT VOLUME 8.1 fl (7.5-11.1); PLATELET COUNT 348 K/MM3 (134-434); RBC 3.36 M/mm3 (3.60-5.2); RDW 14.7 % (11.6-15.6); WHITE BLOOD COUNT 15.6 K/mm3 (4.0-10.0)
[2018-09-27 08:40] LABS: ALBUMIN 2.2 g/dl (3.4-5.0); ALK PHOS 190 U/L (45-117); ANION GAP 7 MMOL/L (8-16); BILIRUBIN,DIRECT 0.6 mg/dL (0.0-0.2); BLOOD UREA NITROGEN 9 mg/dL (7-18); CALCIUM 8.3 mg/dL (8.5-10.1); CHLORIDE 104 mmol/L (98-107); CO2 32 mmol/L (21-32); CREATININE 0.7 mg/dL (0.55-1.3); GLUCOSE,RANDOM 72 mg/dL (74-106); MAGNESIUM 2.1 mg/dL (1.8-2.4); PHOSPHOROUS 4.4 mg/dL (2.5-4.9); POTASSIUM 3.8 mmol/L (3.5-5.1); SGOT/AST 112 U/L (15-37); SGPT/ALT 101 U/L (13-61); SODIUM 143 mmol/L (136-145); TOT PROT 5.5 g/dl (6.4-8.2)
--- NOTE | 2018-09-27 08:45 | OP ---
DATE OF OPERATION: 09/26/2018 PREOPERATIVE DIAGNOSIS: Gallstone pancreatitis, cholelithiasis, cholecystitis. POSTOPERATIVE DIAGNOSIS: Gallstone pancreatitis, cholelithiasis, cholecystitis , plus peritoneal implants. PROCEDURE: Laparoscopic cholecystectomy and peritoneal wall biopsy. SURGEON: Wade Arcos MD NURSE QUALITY: Samantha Umaña PA-C ANESTHESIA: General. OPERATIVE FINDINGS: There was a distended gallbladder with stones and edema of the gallbladder wall. There were multiple peritoneal wall implants which were questionably consistent with saponification and perihepatic adhesions from the liver to the abdominal wall and free fluid in the peritoneal cavity, and the rest of the findings were unremarkable. DESCRIPTION OF PROCEDURE: The patient was placed on the operating room table in supine position. After the induction of general anesthesia, the patient's abdomen was prepped with ChloraPrep and draped in sterile fashion. Time-out was taken and then pneumoperitoneum established above the umbilicus using a Veress needle. Once 15 mm of intra-abdominal pressure was obtained, a 5-mm port was placed at the umbilicus. Additional lateral 5-mm ports and a subxiphoid 12-mm port were placed and laparoscopy carried out, and the previously noted findings were observed. The gallbladder was placed on cephalad and lateral traction, and dissection was begun at the neck of the gallbladder where the peritoneum was opened medially and laterally using blunt and sharp dissection and electrocautery. Dissection continued in the triangle of Calot where the cystic duct was identified coursing from the neck of the gallbladder distally to the common bile duct. It was dissected proximally and distally for length. Similarly, the artery was similarly identified and dissected. A critical view of safety was taken, and then the cystic duct divided proximally and distally using Endo Dilcia after it was clipped twice proximally and distally with large hemoclips. The artery was similarly clipped and divided. Hemostasis was checked for and noted to be good and then the gallbladder was removed from the liver bed in a retrograde fashion using electrocautery. Prior to removal from the edge of the liver, hemostasis was again verified and then the gallbladder removed from the edge of the liver, placed in an EndoCatch, and brought out through the subxiphoid port. Pneumoperitoneum was reestablished, hemostasis verified again, and then the 5-mm lateral and subxiphoid ports were removed under laparoscopic vision without evidence of bleeding from the port sites. The umbilical port was removed and the pneumoperitoneum evacuated. All port sites were infiltrated with 0.5% Marcaine and the skin edges closed with 4-0 Biosyn in a subcuticular and continuous fashion. Steri-Strips and Band-Aid dressings were placed and the procedure terminated at this point and the patient aroused from general anesthesia and transferred to the post anesthesia care unit in stable condition awake and alert. ESTIMATED BLOOD LOSS: 25 mL. REPLACEMENTS: Crystalloid. DRAINS: None. SPECIMENS: Gallbladder and contents and peritoneal biopsies to Pathology. I, Wade Arcos, was physically present in the operating room from the time the patient was placed on the operating table until she was transferred to the post-anesthesia care unit in my accompaniment. MD JESSICA Velazquez/[id number] MTDD
[2018-09-27] MEDS: HEPARIN NA (PORCINE) 5,000 UNITS/ML 1ML VIAL SQ SCH ×2 (09:01→21:59)
[2018-09-27] MEDS: LISINOPRIL 20 MG TABLET (FP) PO SCH (09:02)
[2018-09-27] MEDS: HYDROmorphone HCl 2 MG/ML VIAL IVPB PRN ×2 (09:02→15:11)
--- NOTE | 2018-09-27 09:36 | PN ---
Progress Note (short form) - Note Progress Note: Anesthesia postop note POD#1. S/P Lap cholecystectomy under GA. Pat seen and examined. VSS. No apparent post anesthesia complications. Signed off.
[2018-09-27] MEDS ORDERED: PANTOPRAZOLE SODIUM 40 MG VIAL IVPUSH SCH (10:00)
--- NOTE | 2018-09-27 11:47 | PN ---
Progress Note (short form) - Note Progress Note: Attending Surgeon POD #1 No c/o; tolerated liquids but has no appetite VSS AF abdo-soft and tympanitic; port site dressings c/d/i; o/w negative LFT's slightly elevated; WBC decreasing IMP: stable post op PLAN: Advance diet as tolerated; OOB; trend LFT's Wade Arcos MD FACS.
[2018-09-27] MEDS ORDERED: MELATONIN 5 MG TABLETS PO ONE (21:53)
[2018-09-27] MEDS: ACETAMINOPHEN 325 MG TABLET (FP) PO PRN (23:39)
[2018-09-28 06:59] LABS: HEMATOCRIT 31.1 % (32.4-45.2); HEMOGLOBIN 10.5 GM/dL (10.7-15.3); MCH 30.7 pg (25.7-33.7); MCHC 33.8 g/dl (32.0-36.0); MEAN CELL VOLUME 90.7 fl (80-96); MEAN PLT VOLUME 7.6 fl (7.5-11.1); PLATELET COUNT 369 K/MM3 (134-434); RBC 3.43 M/mm3 (3.60-5.2); RDW 14.9 % (11.6-15.6); WHITE BLOOD COUNT 14.5 K/mm3 (4.0-10.0)
[2018-09-28 07:44] LABS: ALBUMIN 2.1 g/dl (3.4-5.0); ALK PHOS 181 U/L (45-117); ANION GAP 4 MMOL/L (8-16); BILIRUBIN,TOTAL 0.5 mg/dL (0.2-1); BLOOD UREA NITROGEN 9 mg/dL (7-18); CALCIUM 8.3 mg/dL (8.5-10.1); CHLORIDE 102 mmol/L (98-107); CO2 33 mmol/L (21-32); CREATININE 0.7 mg/dL (0.55-1.3); GLUCOSE,RANDOM 118 mg/dL (74-106); POTASSIUM 3.7 mmol/L (3.5-5.1); SGOT/AST 57 U/L (15-37); SGPT/ALT 84 U/L (13-61); SODIUM 140 mmol/L (136-145); TOT PROT 5.7 g/dl (6.4-8.2)
[2018-09-28] MEDS: LISINOPRIL 20 MG TABLET (FP) PO SCH (09:59)
[2018-09-28] MEDS: HEPARIN NA (PORCINE) 5,000 UNITS/ML 1ML VIAL SQ SCH ×2 (09:59→21:43)
--- NOTE | 2018-09-28 10:01 | PN ---
GI Progress Note Subjective: No acute events Awake, states feeling better. Still with poor appetite however tolerating solids - Objective Vital Signs: Vital Signs Temperature 98.7 F 09/28/18 05:27 Pulse Rate 89 09/28/18 05:27 Respiratory Rate 20 09/28/18 05:27 Blood Pressure 143/66 09/28/18 05:27 O2 Sat by Pulse Oximetry (%) 97 09/27/18 20:39 Constitutional: Calm Eyes: No: Sclera Icterus Cardiovascular: Yes: Regular Rate and Rhythm Respiratory: Yes: Diminished (at bases bilaterally) Gastrointestinal Inspection: Yes: Other (dressed trochar scars). No: Distention ...Auscultate: Yes: Normoactive Bowel Sounds ...Palpate: Yes: Tenderness (mild tenderness at trochar sites) ...Percussion: No: Tympanitic Edema: No (No LE edema) Neurological: Yes: Alert Labs: CBC, BMP 09/28/18 06:00 09/28/18 06:00 INR, PTT INR 1.24 (0.83-1.09) H 09/26/18 07:10 Hepatic Panel Total Bilirubin 0.5 mg/dL (0.2-1) 09/28/18 06:00 Direct Bilirubin 0.6 mg/dL (0.0-0.2) H 09/27/18 06:00 AST 57 U/L (15-37) H 09/28/18 06:00 ALT 84 U/L (13-61) H 09/28/18 06:00 Alkaline Phosphatase 181 U/L (45-117) H 09/28/18 06:00 Albumin 2.1 g/dl (3.4-5.0) L 09/28/18 06:00 Problem List - Problems (1) Acute gallstone pancreatitis Assessment/Plan: S/P Lap megha and clinically much improived in terms of the acute pancreatitis as well LFts have risen post op but are improving. ? reactive s/p Lap Megha. I D/C'd APAP Outpatient follow-up Code(s): K85.10 - BILIARY ACUTE PANCREATITIS WITHOUT NECROSIS OR INFECTION
--- NOTE | 2018-09-28 11:05 | PN ---
Teaching Attending Note Name of Resident: Zeke Lowe ATTENDING PHYSICIAN STATEMENT I saw and evaluated the patient. I reviewed the resident's note and discussed the case with the resident. I agree with the resident's findings and plan as documented. SUBJECTIVE:pain resolved. tolerating diet. denies CP, SOB, fever, chills, N/V/C/ D OBJECTIVE: Last Vital Signs Temp Pulse Resp BP Pulse Ox 98.7 F 89 20 143/66 97 09/28/18 05:27 09/28/18 05:27 09/28/18 05:27 09/28/18 05:27 09/27/18 20:39 General NAD Abdomen soft NT/ND obese ASSESSMENT AND PLAN: 73 year old female with HTN, presents with epigastric abdominal pain/nausea/ vomiting and found to have pancreatitis due to gallstones 1. Severe Pancreatitis- likely sec to Gallstones. s/p laprascopic cholecystectomy 09/26. tolerated diet. will need repeat CT to f/u pseudocyst. GI and surgery outpatient. 2. transaminitis- likely due to surgery. improved. should have LFT repeated next week 3. tachycardia- sinus tachycardia. no intervention at this time 4. HTN-improved. cont current management. 5. Hypokalemia- resolved 6. DVT ppx- hep sq 7. d/c home
--- NOTE | 2018-09-28 12:27 | PN ---
Progress Note (short form) - Note Progress Note: Attending Surgeon No BM; she is passing flatus; no appetit VSS AF abdo-soft; tympanitic; port site dressings c/d/i; o/w negative labs improved IMP; slowly improving PLAN: ambulate; advance diet; given sinificant pre-op pancreatitis may take time to slowly progress. Wade Arcos MD FACS
--- NOTE | 2018-09-28 13:00 | DS ---
Physical Exam: SUBJECTIVE: Patient seen and examined OBJECTIVE: Vital Signs Period Temp Pulse Resp BP Sys/Contreras Pulse Ox Last 24 Hr 98.2 F-99 F 89-103 20-20 143-159/66-88 97 PHYSICAL EXAM GENERAL: The patient is awake, alert, and fully oriented, in no acute distress. HEAD: Normal with no signs of trauma. EYES: PERRL, extraocular movements intact, sclera anicteric, conjunctiva clear. ENT: Ears normal, nares patent, oropharynx clear without exudates, moist mucous membranes. NECK: Trachea midline, full range of motion, supple. LUNGS: Breath sounds equal, clear to auscultation bilaterally, no wheezes, no crackles, no accessory muscle use. HEART: Regular rate and rhythm, S1, S2 without murmur, rub or gallop. ABDOMEN: Soft, nontender, nondistended, normoactive bowel sounds, no guarding, no rebound, no hepatosplenomegaly, no masses. EXTREMITIES: 2+ pulses, warm, well-perfused, no edema. NEUROLOGICAL: Cranial nerves II through XII grossly intact. Normal speech, gait not observed. PSYCH: Normal mood, normal affect. SKIN: Warm, dry, normal turgor, no rashes or lesions noted. LABS Laboratory Results - last 24 hr 09/28/18 09/28/18 09/28/18 06:00 06:00 12:52 WBC 14.5 H RBC 3.43 L Hgb 10.5 L Hct 31.1 L MCV 90.7 MCH 30.7 MCHC 33.8 RDW 14.9 Plt Count 369 MPV 7.6 Sodium 140 Potassium 3.7 Chloride 102 Carbon Dioxide 33 H Anion Gap 4 L BUN 9 Creatinine 0.7 Creat Clearance w eGFR > 60 POC Glucometer 128 Random Glucose 118 H Calcium 8.3 L Total Bilirubin 0.5 AST 57 H ALT 84 H Alkaline Phosphatase 181 H Total Protein 5.7 L Albumin 2.1 L HOSPITAL COURSE: Date of Admission:09/19/18 Date of Discharge: 09/28/18 Discharge Summary Reason For Visit: ACUTE KIDNEY INJURY PANCREATITIS Current Active Problems MODESTA (acute kidney injury) (Acute) Acute gallstone pancreatitis (Acute) Pancreatic pseudocyst (Acute) Pancreatitis (Acute) Condition: Improved - Instructions Diet, Activity, Other Instructions: You were hospitalized here due to inflammation of your pancreas which was caused by a gallstone. After your inflammation was getting better you also had your gallbladder removed by Dr. Arcos. Being that you can eat, walk, and are pain free you can return home today. During your stay a CAT scan was done of your pancreas which showed cysts inside of it as well which will need follow-up. MEDICATIONS: Please continue taking Lipitor 20mg AT NIGHT Your blood pressure medication has changed to Lisinopril 20mg DAILY --This will be sent to your pharmacy for pickup ([facility] in the [place]) You can also continue your Methimazole as you have been prior to hospitalization Follow-ups: Please follow-up with Dr. Guido's office within 2 weeks. (His information has been provided for you) Please follow-up with your primary care physician within 1 week. If you do not have a primary doctor please feel free to come to the [facility] to establish care. --You will need repeat liver tests (LFTs) in 1 week to make sure they are still trending to normal. --You will need a repeat CAT scan of your pancreas in 6 months to check on those cysts that were found Please follow-up with Dr. Arcos in 2 weeks after your surgery. Referrals: Robb Lubin MD [Staff Physician] - Wade Arcos MD [Staff Physician] - Ajit Guido DO [Staff Physician] - 2 Weeks Disposition: HOME - Home Medications Comprehensive Discharge Medication List: Ambulatory Orders Atorvastatin Ca [Lipitor] 20 mg PO DAILY 09/23/18 Methimazole 10 mg PO BID 09/23/18 Lisinopril [Prinivil] 20 mg PO DAILY #30 tablet 09/28/18 - Discharge Referral Referred to [facility] Med P.C.: No
[2018-09-28] MEDS ORDERED: MELATONIN 5 MG TABLETS PO ONE (21:55)
[2018-09-29] MEDS ORDERED: DOCUSATE SODIUM 100 MG CAPSULE (FP) PO ONE (08:30)
[2018-09-29] MEDS: LISINOPRIL 20 MG TABLET (FP) PO SCH (09:32)
[2018-09-29] MEDS: HEPARIN NA (PORCINE) 5,000 UNITS/ML 1ML VIAL SQ SCH (09:32)
[2018-09-29] MEDS ORDERED: amLODIPine BESYLATE 5 MG TABLET (FP) PO SCH (10:00)
--- NOTE | 2018-09-29 11:31 | PN ---
Progress Note, Physician Chief Complaint: Abdominal pain, pancreatitis s/p cholecystectomy History of Present Illness: Pt seen/examined at bedside, slight soreness at incision sites, otherwise feeling better, passing flatus, no bm yet. Appetite improving, tolerating regular diet, denies n/v, fever/chills. - Current Medication List Current Medications: Active Medications Amlodipine Besylate (Norvasc -) 5 mg PO DAILY [facility] Last Admin: 09/29/18 09:32 Dose: 5 mg Heparin Sodium (Porcine) (Heparin -) 5,000 unit SQ BID [facility] Last Admin: 09/29/18 09:32 Dose: 5,000 unit Hydromorphone HCl (Dilaudid Vial -) 0.5 mg IVPB Q6H PRN PRN Reason: PAIN LEVEL 7 - 10 Last Admin: 09/27/18 15:11 Dose: 0.5 mg Lisinopril (Prinivil) 20 mg PO DAILY [facility] Last Admin: 09/29/18 09:32 Dose: 20 mg Ondansetron HCl (Zofran Injection) 4 mg IVPUSH Q4H PRN PRN Reason: NAUSEA AND/OR VOMITING Last Admin: 09/28/18 17:44 Dose: 4 mg - Objective Vital Signs: Vital Signs Temperature 98.1 F 09/29/18 10:00 Pulse Rate 88 09/29/18 10:00 Respiratory Rate 20 09/29/18 10:00 Blood Pressure 142/84 09/29/18 10:00 O2 Sat by Pulse Oximetry (%) 95 09/29/18 09:00 Constitutional: Yes: Well Nourished, No Distress, Calm Cardiovascular: Yes: WNL, Regular Rate and Rhythm Respiratory: Yes: WNL, Regular, CTA Bilaterally Gastrointestinal: Yes: WNL, Normal Bowel Sounds, Soft, Other (+laparoscopic incisions, mild tenderness at sites) Edema: No Labs: CBC, BMP 09/28/18 06:00 09/28/18 06:00 INR, PTT INR 1.24 (0.83-1.09) H 09/26/18 07:10 Problem List - Problems (1) Acute gallstone pancreatitis Assessment/Plan: 73 yo female with gallstone pancreatitis s/p laparoscopic cholecystectomy on 09/26, abdominal pain improved, tolerating po diet, passing flatus, no bm yet. LFT elevation noted post op, improved yesterday. DC planning. -Diet as tolerated -Encourage ambulation, OOB to chair -Stool softeners, miralax prn -Monitor LFTs to ensure normalization -Pt will require follow up CT imaging to re-evaluate pancreatic cystic lesion -Outpatient GI follow up Code(s): K85.10 - BILIARY ACUTE PANCREATITIS WITHOUT NECROSIS OR INFECTION
[2018-09-29] MEDS ORDERED: POLYETHYLENE GLYCOL 3350 119 GM BTL PO SCH (12:15)
[2018-09-29 15:12] VITALS: BP 149/80; PULSE 95; TEMP 98.6
--- NOTE | 2018-09-29 16:58 | PATH ---
Surgical Pathology Report Patient Name: JUAN AGGARWAL [facility]. Rec. #: [id number] /Age/Gender: 1945 (Age: 73) / F Account: [id number] Location: [facility]/SURG Taken: 09/26/2018 Received: 09/26/2018 Reported: 09/29/2018 Physicians: MD Wade Kang MD Specimen(s) Received A: GALLBLADDER B: PERITONEAL BIOPSY Clinical History Gallstone pancreatitis, Cholecystitis Final Diagnosis A. GALLBLADDER, LAPAROSCOPIC CHOLECYSTECTOMY: CHRONIC CHOLECYSTITIS WITH CHOLELITHIASIS AND CHOLESTEROLOSIS. FOCAL FAT NECROSIS. B. PERITONEAL, BIOPSY: FAT NECROSIS. Electronically Signed Claudia Sarabia M.D. Gross Description A. Received in formalin, labeled "gallbladder," is a 9.5 x 4.0 x 3.0 cm. gallbladder with a 0.2 cm. in length portion of cystic duct attached. There is a 0.7 cm greatest dimension nodular tissue present. The outer surface is major green and varies from smooth to shaggy. The lumen contains green, tenacious bile as well as multiple yellow choleliths ranging from 0.1-0.3 cm in greatest dimension. The mucosa is dark green and velvety. The wall of the gallbladder averages 0.1 cm. in thickness. [employer] sections are submitted in one cassette. B. Received in formalin labeled "peritoneal biopsy," are 3 major soft tissue fragments ranging from 0.1-0.4 cm in greatest dimension. The specimens are submitted in toto in one cassette. 09/26/201809/26/2018
== END 2018-09-29 18:36 | disposition home or self-care (01) | DRG 263 ==
LOC: JER 01:48 → JERBED 05:13 → J7W 13:02
PROVIDERS: ADMIT Internal Medicine; ATTEND Internal Medicine
PROC: 0DBW4ZX Excision of Peritoneum, Percutaneous Endoscopic Approach, Diagnostic (ICD-10-PCS; 2018-09-26)
PROC: 0FT44ZZ Resection of Gallbladder, Percutaneous Endoscopic Approach (ICD-10-PCS; principal; 2018-09-26 09:00)
DX: K85.10 Biliary acute pancreatitis without necrosis or infection (principal); K80.10 Calculus of gallbladder with chronic cholecystitis without obstruction; N17.9 Acute kidney failure, unspecified; K86.3 Pseudocyst of pancreas; R74.0 Nonspecific elevation of levels of transaminase and lactic acid dehydrogenase [LDH]; R00.0 Tachycardia, unspecified; E87.6 Hypokalemia; I10 Essential (primary) hypertension; J98.11 Atelectasis; D72.829 Elevated white blood cell count, unspecified
CPT/HCPCS: 36415; 70450-TC; 71045-TC-FY; 74150-TC; 74178-TC; 74181-TC; 76705-TC; 80048; 80053; 80061; 80076; 82150; 82550; 82962; 83690; 83721; 83735; 84100; 84484; 85025; 85027; 85610; 85730; 86140; 86850; 86900; 86901; 88304-TC; 88305-TC; 93005; 93010; 94760; 97116-GP; 97161-GP; 99285-25; J0131; J1644